=== PATIENT | female | born 1965 | race Caucasian/White ===

== ENCOUNTER 2023-02-09 09:45 | Inpatient (IN) | payer MEDICARE, OTHER ==
[2023-02-09 09:53] LABS: Glucose,Whole Blood >600 mg/dL (70-110)
[2023-02-09] MEDS ORDERED: Potassium Replacement Protocol 1 EACH MISC MISCELLANE PRN (10:15)
[2023-02-09] MEDS ORDERED: INSULIN REGULAR BOLUS (FROM DRIP BAG) IV ONE (10:15)
[2023-02-09] MEDS ORDERED: DEXTROSE 50% SYRINGE 50 ML IVP PRN ×2 (10:15)
[2023-02-09] MEDS ORDERED: Magnesium Replacement Protocol 1 EACH MISC MISCELLANE PRN (10:15)
[2023-02-09] MEDS ORDERED: SODIUM CHLORIDE 0.9% 2,000 ML IV ONE (10:17)
--- NOTE | 2023-02-09 10:23 | ED ---
General Adult HPI - General Chief complaint: Nausea/Vomiting/Diarrhea Stated complaint: N/V, Type 2 Diab Time Seen by Provider: 02/09/23 10:00 Source: patient, RN notes reviewed, old records reviewed Mode of arrival: EMS Limitations: physical limitation - History of Present Illness Initial comments: This a 57-year-old female presents emergency Department stating that her sugar is high and that is why she is here. Patient states she only takes insulin once a week however the patient also thinks it's and is unaware that it is Wednesday. Patient denies any fever chills per patient denies any chest pain difficulty breathing shortness of breath per patient denies any abdominal pain. Patient denies any nausea vomiting diarrhea. Patient is a very poor historian and does seem confused - Related Data Home Medications Medication Instructions Recorded Confirmed Aspirin EC [Ecotrin Low Dose] 81 mg PO DAILY 02/09/23 02/09/23 Atorvastatin [Lipitor] 40 mg PO HS 02/09/23 02/09/23 Ferrous Sulfate [Feosol] 325 mg PO DAILY 02/09/23 02/09/23 Metoprolol Succinate (ER) [Toprol 50 mg PO BID 02/09/23 02/09/23 Xl] Ondansetron [Zofran] 4 mg PO Q8HR PRN 02/09/23 02/09/23 Pioglitazone [Actos] 15 mg PO DAILY 02/09/23 02/09/23 SUMAtriptan succinate [Imitrex] 100 mg PO BID PRN 02/09/23 02/09/23 Semaglutide [Ozempic] 0.25 mg SQ Q7D 02/09/23 02/09/23 Verapamil Sr [Isoptin Sr] 180 mg PO DAILY 02/09/23 02/09/23 lisinopriL [Zestril] 30 mg PO DAILY 02/09/23 02/09/23 sitaGLIPtin [Januvia] 50 mg PO DAILY 02/09/23 02/09/23 Allergies Allergy/AdvReac Type Severity Reaction Status Date / Time metoclopramide [From Reglan] Allergy Swelling Verified 02/09/23 13:20 Review of Systems ROS Statement: Those systems with pertinent positive or pertinent negative responses have been documented in the HPI. ROS Other: All systems not noted in ROS Statement are negative. Past Medical History Past Medical History: Diabetes Mellitus Additional Past Medical History / Comment(s): legally blind, Past Surgical History: No Surgical Hx Reported Past Psychological History: No Psychological Hx Reported Smoking Status: Never smoker Past Alcohol Use History: None Reported Past Drug Use History: None Reported General Exam - General Exam Comments Initial Comments: GENERAL: Patient is well-developed and well-nourished. Patient is nontoxic and well-hy drated and is in mild distress. ENT: Neck is soft and supple. No significant lymphadenopathy is noted. Oropharynx is clear. Dry mucous membranes. Neck has full range of motion without eliciting any pain. EYES: The sclera were anicteric and conjunctiva were pink and moist. Extraocular movements were intact and pupils were equal round and reactive to light. Eyelids were unremarkable. PULMONARY: Unlabored respirations. Good breath sounds bilaterally. No audible rales rhonchi or wheezing was noted. CARDIOVASCULAR: There is a regular rate and rhythm without any murmurs gallops or rubs. ABDOMEN: Soft and nontender with normal bowel sounds. SKIN: Skin is clear with no lesions or rashes and otherwise unremarkable. NEUROLOGIC: Patient is alert and oriented 2. Cranial nerves II through XII are grossly intact. Motor and sensory are also intact. Normal speech, volume and content. Symmetrical smile. MUSCULOSKELETAL: Normal extremities with adequate strength and full range of motion. LYMPHATICS: No significant lymphadenopathy is noted PSYCHIATRIC: Normal psychiatric evaluation. Limitations: altered mental status, physical limitation Course Vital Signs 02/09/23 02/09/23 02/09/23 09:46 10:44 11:32 Temperature 98.0 F Pulse Rate 95 97 93 Respiratory 18 18 18 Rate Blood Pressure 113/39 107/78 96/49 O2 Sat by Pulse 99 96 94 L Oximetry 02/09/23 02/09/23 12:01 13:25 Temperature Pulse Rate 94 90 Respiratory 18 18 Rate Blood Pressure 98/45 90/64 O2 Sat by Pulse 99 100 Oximetry Medical Decision Making - Medical Decision Making EKG was interpreted by myself EKG shows a sinus rhythm at 90 bpm AR interval 154 Avelar is 100 a QT interval 356 QTC is 408. Patient's EKG shows no ST segment e levation. Was pt. sent in by a medical professional or institution (, PA, NETWORK CONSULTANT, urgent care, hospital, or longterm...) When possible be specific @ -[No] Did you speak to anyone other than the patient for history (EMS, parent, family, police, friend...)? What history was obtained from this source @ -[No] Did you review nursing and triage notes (agree or disagree)? Why? @ -[I reviewed and agree with nursing and triage notes] Were old charts reviewed (outside hosp., previous admission, EMS record, old EKG, old radiological studies, urgent care reports/EKG's, longterm records)? Report findings @ -[No old charts were reviewed] Differential Diagnosis (chest pain, altered mental status, abdominal pain women, abdominal pain men, vaginal bleeding, weakness, fever, dyspnea, syncope, headache, dizziness, GI bleed, back pain, seizure, CVA, palpatations, mental health, musculoskeletal)? @ -Differential Altered Mental Status: Hypoglycemia, DKA, hypercapnia, ETOH, overdose, CO poisoning, trauma, myxedema coma, HTN encephalopathy, infection, encephalitis, psychosis, intercranial hemorrhage, hepatic encephalopathy, meningitis, CVA, this is not meant to be an all-inclusive list EKG interpreted by me (3pts min.). @ -[As above] X-rays interpreted by me (1pt min.). @ -[None done] CT interpreted by me (1pt min.). @ -[None done] U/S interpreted by me (1pt. min.). @ -[None done] What testing was considered but not performed or refused? (CT, X-rays, U/S, labs)? Why? @ -[None] What meds were considered but not given or refused? Why? @ -[None] Did you discuss the management of the patient with other professionals (professionals i.e. , PA, NETWORK CONSULTANT, lab, RT, psych nurse, social media developer, ferris wheel operator, teacher, surveillance dual rate officer, casey saw operator)? Give summary @ -I spoke with son physicians he agreed to admit the patient with the patient wrote admitting orders I consulted Dr. Bailey and spoke with him and he agreed to take the patient in the ICU Was smoking cessation discussed for >3mins.? @ -[No] Was critical care preformed (if so, how long)? @ -35 minutes Were there social determinants of health that impacted care today? How? (Homelessness, low income, unemployed, alcoholism, drug addiction, transportation, low edu. Level, literacy, decrease access to med. care, detention, rehab)? @ -[No] Was there de-escalation of care discussed even if they declined (Discuss DNR or withdrawal of care, Hospice)? DNR status @ -[No] What co-morbidities impacted this encounter? (DM, HTN, Smoking, COPD, CAD, Cancer, CVA, ARF, Chemo, Hep., AIDS, mental health diagnosis, sleep apnea, morbid obesity)? @ -[None] Was patient admitted / discharged? Hospital course, mention meds given and route, prescriptions, significant lab abnormalities, going to OR and other pertinent info. @ -Patient's sugar was elevated and she was acidotic she felt prescription for DKA patient was started on insulin as well as given a 2 L bolus of normal saline. I spoke with son physicians agreed to admit the patient admitted the patient I consulted Dr. Bailey and admitted the patient to the ICU Undiagnosed new problem with uncertain prognosis? @ -[No] Drug Therapy requiring intensive monitoring for toxicity (Heparin, Nitro, Insulin, Cardizem)? @ -[No] Were any procedures done? @ -[No] Diagnosis/symptom? @ -DKA Acute, or Chronic, or Acute on Chronic? @ -Acute Uncomplicated (without systemic symptoms) or Complicated (systemic symptoms)? @ -Complicated Side effects of treatment? @ -[No] Exacerbation, Progression, or Severe Exacerbation? @ -[No] Poses a threat to life or bodily function? How? (Chest pain, [place], [place], pneumonia, PE, COPD, DKA, ARF, appy, cholecystitis, CVA, Diverticulitis, Homicidal, Suicidal, threat to staff... and all critical care pts) @ -Yes this could lead to further dehydration and - Lab Data Result diagrams: 02/09/23 09:50 02/09/23 10:15 Lab Results 02/09/23 02/09/23 02/09/23 Range/Units 09:50 09:51 10:15 WBC 8.4 (3.8-10.6) k/uL RBC 4.35 (3.80-5.40) m/uL Hgb 12.0 (11.4-16.0) gm/dL Hct 40.4 (34.0-46.0) % MCV 92.9 (80.0-100.0) fL MCH 27.7 (25.0-35.0) pg MCHC 29.8 L (31.0-37.0) g/dL RDW 17.5 H (11.5-15.5) % Plt Count 223 (150-450) k/uL MPV 10.9 Neutrophils % 85 % Lymphocytes % 6 % Monocytes % 6 % Eosinophils % 1 % Basophils % 1 % Neutrophils # 7.1 (1.3-7.7) k/uL Lymphocytes # 0.5 L (1.0-4.8) k/uL Monocytes # 0.5 (0-1.0) k/uL Eosinophils # 0.1 (0-0.7) k/uL Basophils # 0.1 (0-0.2) k/uL Hypochromasia Marked Anisocytosis Slight VBG pH (7.31-7.41) VBG pCO2 (37-51) mmHg VBG HCO3 (24-28) mmol/L Sodium 128 L (137-145) mmol/L Potassium 7.1 H* (3.5-5.1) mmol/L Chloride 88 L (98-107) mmol/L Carbon Dioxide 11 L (22-30) mmol/L Anion Gap 29 mmol/L BUN 41 H (7-17) mg/dL Creatinine 1.71 H (0.52-1.04) mg/dL Est GFR (CKD-EPI)AfAm 38 (>60 ml/min/1.73 sqM) Est GFR (CKD-EPI)NonAf 33 (>60 ml/min/1.73 sqM) Glucose 787 H* (74-99) mg/dL POC Glucose (mg/dL) >600 H (70-110) mg/dL POC Glu Manager Search Engine ID Danny Keanu Urine Color Urine Appearance (Clear) Urine pH (5.0-8.0) Ur Specific [place] (1.001-1.035) Urine Protein (Negative) Urine Glucose (UA) (Negative) Urine Ketones (Negative) Urine Blood (Negative) Urine Nitrite (Negative) Urine Bilirubin (Negative) Urine Urobilinogen (<2.0) mg/dL Ur Leukocyte Esterase (Negative) Acetone, Qual Positive (Negative) 02/09/23 02/09/23 02/09/23 Range/Units 10:35 10:35 10:52 WBC (3.8-10.6) k/uL RBC (3.80-5.40) m/uL Hgb (11.4-16.0) gm/dL Hct (34.0-46.0) % MCV (80.0-100.0) fL MCH (25.0-35.0) pg MCHC (31.0-37.0) g/dL RDW (11.5-15.5) % Plt Count (150-450) k/uL MPV Neutrophils % % Lymphocytes % % Monocytes % % Eosinophils % % Basophils % % Neutrophils # (1.3-7.7) k/uL Lymphocytes # (1.0-4.8) k/uL Monocytes # (0-1.0) k/uL Eosinophils # (0-0.7) k/uL Basophils # (0-0.2) k/uL Hypochromasia Anisocytosis VBG pH 7.19 L* (7.31-7.41) VBG pCO2 42 (37-51) mmHg VBG HCO3 16 L (24-28) mmol/L Sodium (137-145) mmol/L Potassium (3.5-5.1) mmol/L Chloride (98-107) mmol/L Carbon Dioxide (22-30) mmol/L Anion Gap mmol/L BUN (7-17) mg/dL Creatinine (0.52-1.04) mg/dL Est GFR (CKD-EPI)AfAm (>60 ml/min/1.73 sqM) Est GFR (CKD-EPI)NonAf (>60 ml/min/1.73 sqM) Glucose (74-99) mg/dL POC Glucose (mg/dL) >600 H (70-110) mg/dL POC Glu Manager Search Engine ID Lisette Millan Urine Color Light Yellow Urine Appearance Clear (Clear) Urine pH 5.0 (5.0-8.0) Ur Specific [place] 1.016 (1.001-1.035) Urine Protein Trace H (Negative) Urine Glucose (UA) 4+ H (Negative) Urine Ketones 3+ H (Negative) Urine Blood Negative (Negative) Urine Nitrite Negative (Negative) Urine Bilirubin Negative (Negative) Urine Urobilinogen <2.0 (<2.0) mg/dL Ur Leukocyte Esterase Negative (Negative) Acetone, Qual (Negative) 02/09/23 02/09/23 02/09/23 Range/Units 12:01 12:59 14:06 WBC (3.8-10.6) k/uL RBC (3.80-5.40) m/uL Hgb (11.4-16.0) gm/dL Hct (34.0-46.0) % MCV (80.0-100.0) fL MCH (25.0-35.0) pg MCHC (31.0-37.0) g/dL RDW (11.5-15.5) % Plt Count (150-450) k/uL MPV Neutrophils % % Lymphocytes % % Monocytes % % Eosinophils % % Basophils % % Neutrophils # (1.3-7.7) k/uL Lymphocytes # (1.0-4.8) k/uL Monocytes # (0-1.0) k/uL Eosinophils # (0-0.7) k/uL Basophils # (0-0.2) k/uL Hypochromasia Anisocytosis VBG pH (7.31-7.41) VBG pCO2 (37-51) mmHg VBG HCO3 (24-28) mmol/L Sodium (137-145) mmol/L Potassium (3.5-5.1) mmol/L Chloride (98-107) mmol/L Carbon Dioxide (22-30) mmol/L Anion Gap mmol/L BUN (7-17) mg/dL Creatinine (0.52-1.04) mg/dL Est GFR (CKD-EPI)AfAm (>60 ml/min/1.73 sqM) Est GFR (CKD-EPI)NonAf (>60 ml/min/1.73 sqM) Glucose (74-99) mg/dL POC Glucose (mg/dL) 570 H 470 H 360 H (70-110) mg/dL POC Glu Manager Search Engine Keanu Castellanos Elizabeth McNeice, Katlyn Urine Color Urine Appearance (Clear) Urine pH (5.0-8.0) Ur Specific [place] (1.001-1.035) Urine Protein (Negative) Urine Glucose (UA) (Negative) Urine Ketones (Negative) Urine Blood (Negative) Urine Nitrite (Negative) Urine Bilirubin (Negative) Urine Urobilinogen (<2.0) mg/dL Ur Leukocyte Esterase (Negative) Acetone, Qual (Negative) Critical Care Time Critical Care Time: Yes Total Critical Care Time: 35 Disposition Clinical Impression: Diabetic ketoacidosis Disposition: ADMITTED IP TO THIS HOSP Referrals: None,Stated [Primary Care Provider] - 1-2 days Time of Disposition: 14:26
[2023-02-09] MEDS: SODIUM CHLORIDE 0.9% 1,000 ML IV SCH ×2 (10:30→17:01)
[2023-02-09 10:31] LABS: Anisocytosis Slight; Basophils # (A) 0.1 k/uL (0-0.2); Basophils % (A) 1 %; Eosinophils # (A) 0.1 k/uL (0-0.7); Eosinophils % (A) 1 %; HCT 40.4 % (34.0-46.0); Hypochromasia Marked; Lymphocytes # (A) 0.5 k/uL (1.0-4.8); Lymphocytes % (A) 6 %; MCH 27.7 pg (25.0-35.0); MCHC 29.8 g/dL (31.0-37.0); MCV 92.9 fL (80.0-100.0); Mean Platelet Volume 10.9; Monocytes # (A) 0.5 k/uL (0-1.0); Monocytes % (A) 6 %; Neutrophils # (A) 7.1 k/uL (1.3-7.7); Neutrophils % (A) 85 %; Platelet Count 223 k/uL (150-450); RBC 4.35 m/uL (3.80-5.40); RDW 17.5 % (11.5-15.5); WBC 8.4 k/uL (3.8-10.6)
[2023-02-09] MEDS ORDERED: ONDANSETRON 4 MG/2 ML VIAL IVP STA (10:44)
[2023-02-09 10:46] LABS: African American GFR (CKD) 38 (>60 ml/min/1.73 sqM); Anion Gap 29 mmol/L; Blood Urea Nitrogen 41 mg/dL (7-17); Carbon Dioxide 11 mmol/L (22-30); Chloride 88 mmol/L (98-107); Non-African American GFR(CKD) 33 (>60 ml/min/1.73 sqM); Sodium 128 mmol/L (137-145)
[2023-02-09] MEDS: INSULIN REGULAR 100 UNIT in SODIUM CHLORIDE 0.9% 100 ML IV SCH ×2 (10:53→16:52)
[2023-02-09 10:54] LABS: Glucose,Whole Blood >600 mg/dL (70-110)
[2023-02-09 10:54] LABS: Glucose 787 mg/dL (74-99); Potassium 7.1 mmol/L (3.5-5.1)
[2023-02-09 10:58] LABS: Appearance,Urine Clear (Clear); Bilirubin,Urine Negative (Negative); Blood,Urine Negative (Negative); Color,Urine Light Yellow; Glucose,Urine (UA) 4+ (Negative); Leukocyte Esterase,Urine Negative (Negative); Nitrite,Urine Negative (Negative); Protein,Urine Trace (Negative); Specific Gravity,Urine 1.016 (1.001-1.035); Urobilinogen,Urine <2.0 mg/dL (<2.0)
[2023-02-09 11:09] LABS: Ketones,Urine 3+ (Negative); VBG PH 7.19 (7.31-7.41)
[2023-02-09] MEDS ORDERED: CALCIUM CHLORIDE 100 MG/ML 10 ML SYRINGE IVP STA (11:14)
[2023-02-09] MEDS ORDERED: SODIUM BICARB 8.4% 50 ML SYR (1 MEQ/ML) IV STA (11:15)
[2023-02-09 12:03] LABS: Glucose,Whole Blood 570 mg/dL (70-110)
[2023-02-09 13:01] LABS: Glucose,Whole Blood 470 mg/dL (70-110)
[2023-02-09 14:08] LABS: Glucose,Whole Blood 360 mg/dL (70-110)
[2023-02-09] MEDS ORDERED: NALOXONE 0.4 MG/ML 1 ML VIAL IV PRN (14:26)
[2023-02-09 15:01] LABS: Glucose,Whole Blood 321 mg/dL (70-110)
[2023-02-09 15:58] LABS: African American GFR (CKD) 43 (>60 ml/min/1.73 sqM); Anion Gap 16 mmol/L; Blood Urea Nitrogen 41 mg/dL (7-17); Carbon Dioxide 20 mmol/L (22-30); Chloride 99 mmol/L (98-107); Glucose 255 mg/dL (74-99); Non-African American GFR(CKD) 37 (>60 ml/min/1.73 sqM); Potassium 4.5 mmol/L (3.5-5.1); Sodium 135 mmol/L (137-145)
[2023-02-09] MEDS: D5-0.45% NACL WITH KCL 20MEQ/L 1,000 ML IV SCH (16:00)
[2023-02-09 16:04] LABS: Glucose,Whole Blood 234 mg/dL (70-110)
--- NOTE | 2023-02-09 16:33 | P.HPIM ---
History of Present Illness H&P Date: 02/09/23 Patient is a 57-year-old legally blind female with history of type 2 diabetes, hypertension, dyslipidemia presenting with nausea and vomiting. Patient is a poor historian. She claims that she lives with a friend and called ambulance on her own. She claims that she has not been feeling well for the past 1 week, and has been having nausea and vomiting. She has been having some fevers and chills. She denies any chest pain, shortness of breath, abdominal pain, urinary or bowel complaints. She claims that she takes her own medications, but is unsure which medications she takes. She denies any smoking, alcohol use, illicit drug use. She uses a walker to ambulate. In the ED, temperature was 98, pulse 95, respiratory rate 18, blood pressure 113/39, saturating at 99% on room air. WBC 8.4, hemoglobin 12, pH 7.19, pCO2 42, sodium 128, potassium 7.1, bicarbonate 11, anion gap 29, creatinine 1.71, blood sugars 787, urine positive for glucose and ketones, serum ketones posi tive. EKG shows normal sinus rhythm. Patient given calcium chloride in the ED, IV bicarbonate, as well as started on insulin drip. ICU consulted. Patient being admitted for diabetic ketoacidosis. Pertinent positives and negatives as discussed in HPI, a complete review of systems was performed and all other systems are negative. Patient seen and examined at bedside. Vital signs reviewed General: nontoxic, no distress, appears at stated age, morbidly obese Derm: warm, dry, has intertrigo, one of the right folds have a ulceration with slight purulent discharge, 2 more areas of crusted and indurated lesions on the abdomen Head: atraumatic, normocephalic, symmetric Eyes: EOMI, no lid lag, anicteric sclera, pupils equal round reactive to light ENT: Nose and ears atraumatic Neck: No thyromegaly, supple Mouth: no lip lesion, mucus membranes moist Cardiovascular: S1S2 reg, no murmur, no edema Lungs: clear to auscultation bilateral, no rhonchi, no rales, no wheeze, no accessory muscle use Abdominal: soft, nontender to palpation, no guarding, no appreciable organomegaly Ext: no gross muscle atrophy, muscle strength muscle strength 5 out of 5 in all 4 extremities, no contractures Neuro: CN II-XII grossly intact Psych: Alert, oriented, appropriate affect Assessment/Plan: Active: Diabetic ketoacidosis History of type 2 diabetes Anion gap metabolic acidosis Hyperkalemia Acute kidney injury Acute metabolic encephalopathy Intertrigo -Insulin drip -Received 1 L IV fluids in the ED, continue to monitor cc an hour normal saline -Can start patient on dextrose fluids once blood glucose below 250 -Zofran as needed for nausea and vomiting -Hyperkalemia should improve with bicarbonate and insulin drip -Acute kidney injury likely prerenal in the setting of dehydration from DKA -Hold home lisinopril and verapamil -Can continue metoprolol -Continue IV fluids -Cultures pending -Encephalopathy likely in the setting of DKA -Serial labs -ICU consulted -Telemetry -Keep area clean and dry at the site of skin lesions, can use nystatin powder if needed Chronic: Dyslipidemia History of hypertension The patient is admitted with an anticipated greater than 2 midnight stay as inpa tient status for evaluation of diabetic ketoacidosis. Surrogate decision-maker: Sibling CODE STATUS: Full code DVT prophylaxis: Subcu heparin Anticipated discharge date: Pending clinical course Anticipated discharge place: Pending clinical course A total of 65 minutes was spent on the care of this complex patient more than 50% of the time was spent in counseling and care coordination. Past Medical History Past Medical History: Diabetes Mellitus Additional Past Medical History / Comment(s): legally blind, Past Surgical History: No Surgical Hx Reported Past Psychological History: No Psychological Hx Reported Smoking Status: Never smoker Past Alcohol Use History: None Reported Past Drug Use History: None Reported Medications and Allergies Home Medications Medication Instructions Recorded Confirmed Type Aspirin EC [Ecotrin Low Dose] 81 mg PO DAILY 02/09/23 02/09/23 History Atorvastatin [Lipitor] 40 mg PO HS 02/09/23 02/09/23 History Ferrous Sulfate [Feosol] 325 mg PO DAILY 02/09/23 02/09/23 History Metoprolol Succinate (ER) [Toprol 50 mg PO BID 02/09/23 02/09/23 History Xl] Ondansetron [Zofran] 4 mg PO Q8HR PRN 02/09/23 02/09/23 History Pioglitazone [Actos] 15 mg PO DAILY 02/09/23 02/09/23 History SUMAtriptan succinate [Imitrex] 100 mg PO BID PRN 02/09/23 02/09/23 History Semaglutide [Ozempic] 0.25 mg SQ Q7D 02/09/23 02/09/23 History Verapamil Sr [Isoptin Sr] 180 mg PO DAILY 02/09/23 02/09/23 History lisinopriL [Zestril] 30 mg PO DAILY 02/09/23 02/09/23 History sitaGLIPtin [Januvia] 50 mg PO DAILY 02/09/23 02/09/23 History Allergies Allergy/AdvReac Type Severity Reaction Status Date / Time metoclopramide [From Reglan] Allergy Swelling Verified 02/09/23 13:20 Physical Exam Vitals: Vital Signs Temp Pulse Resp BP Pulse Ox 02/09/23 15:32 87 18 88/42 96 02/09/23 14:00 92 18 91/43 97 02/09/23 13:25 90 18 90/64 100 02/09/23 12:01 94 18 98/45 99 02/09/23 11:32 93 18 96/49 94 L 02/09/23 10:44 97 18 107/78 96 02/09/23 09:46 98.0 F 95 18 113/39 99 Intake and Output 02/09/23 02/09/23 02/09/23 06:59 14:59 22:59 Other: Weight 121.109 kg Results CBC & Chem 7: 02/09/23 09:50 02/09/23 15:24 Labs: Abnormal Lab Results - Last 24 Hours (Table) 02/09/23 02/09/23 02/09/23 Range/Units 09:50 09:51 10:15 MCHC 29.8 L (31.0-37.0) g/dL RDW 17.5 H (11.5-15.5) % Lymphocytes # 0.5 L (1.0-4.8) k/uL VBG pH (7.31-7.41) VBG HCO3 (24-28) mmol/L Sodium 128 L (137-145) mmol/L Potassium 7.1 H* (3.5-5.1) mmol/L Chloride 88 L (98-107) mmol/L Carbon Dioxide 11 L (22-30) mmol/L BUN 41 H (7-17) mg/dL Creatinine 1.71 H (0.52-1.04) mg/dL Glucose 787 H* (74-99) mg/dL POC Glucose (mg/dL) >600 H (70-110) mg/dL Urine Protein (Negative) Urine Glucose (UA) (Negative) Urine Ketones (Negative) 02/09/23 02/09/23 02/09/23 Range/Units 10:35 10:35 10:52 MCHC (31.0-37.0) g/dL RDW (11.5-15.5) % Lymphocytes # (1.0-4.8) k/uL VBG pH 7.19 L* (7.31-7.41) VBG HCO3 16 L (24-28) mmol/L Sodium (137-145) mmol/L Potassium (3.5-5.1) mmol/L Chloride (98-107) mmol/L Carbon Dioxide (22-30) mmol/L BUN (7-17) mg/dL Creatinine (0.52-1.04) mg/dL Glucose (74-99) mg/dL POC Glucose (mg/dL) >600 H (70-110) mg/dL Urine Protein Trace H (Negative) Urine Glucose (UA) 4+ H (Negative) Urine Ketones 3+ H (Negative) 02/09/23 02/09/23 02/09/23 Range/Units 12:01 12:59 14:06 MCHC (31.0-37.0) g/dL RDW (11.5-15.5) % Lymphocytes # (1.0-4.8) k/uL VBG pH (7.31-7.41) VBG HCO3 (24-28) mmol/L Sodium (137-145) mmol/L Potassium (3.5-5.1) mmol/L Chloride (98-107) mmol/L Carbon Dioxide (22-30) mmol/L BUN (7-17) mg/dL Creatinine (0.52-1.04) mg/dL Glucose (74-99) mg/dL POC Glucose (mg/dL) 570 H 470 H 360 H (70-110) mg/dL Urine Protein (Negative) Urine Glucose (UA) (Negative) Urine Ketones (Negative) 02/09/23 Range/Units 14:59 MCHC (31.0-37.0) g/dL RDW (11.5-15.5) % Lymphocytes # (1.0-4.8) k/uL VBG pH (7.31-7.41) VBG HCO3 (24-28) mmol/L Sodium (137-145) mmol/L Potassium (3.5-5.1) mmol/L Chloride (98-107) mmol/L Carbon Dioxide (22-30) mmol/L BUN (7-17) mg/dL Creatinine (0.52-1.04) mg/dL Glucose (74-99) mg/dL POC Glucose (mg/dL) 321 H (70-110) mg/dL Urine Protein (Negative) Urine Glucose (UA) (Negative) Urine Ketones (Negative)
[2023-02-09] MEDS ORDERED: SODIUM CHLORIDE 0.9% 1,000 ML IV ONE (16:51)
[2023-02-09 17:07] LABS: Glucose,Whole Blood 232 mg/dL (70-110)
[2023-02-09 17:39] LABS: African American GFR (CKD) 42 (>60 ml/min/1.73 sqM); Anion Gap 18 mmol/L; Blood Urea Nitrogen 41 mg/dL (7-17); Carbon Dioxide 19 mmol/L (22-30); Chloride 99 mmol/L (98-107); Glucose 188 mg/dL (74-99); Magnesium 2.1 mg/dL (1.6-2.3); Non-African American GFR(CKD) 37 (>60 ml/min/1.73 sqM); Potassium 4.6 mmol/L (3.5-5.1); Sodium 136 mmol/L (137-145)
[2023-02-09 18:04] LABS: Glucose,Whole Blood 132 mg/dL (70-110)
[2023-02-09 18:58] LABS: Glucose,Whole Blood 119 mg/dL (70-110)
[2023-02-09 20:00] LABS: Glucose,Whole Blood 125 mg/dL (70-110)
[2023-02-09] MEDS: ONDANSETRON 4 MG/2 ML VIAL IVP PRN (20:12)
[2023-02-09] MEDS: ATORVASTATIN 40 MG TAB PO SCH (20:46)
[2023-02-09] MEDS: METOPROLOL SUCCINATE (ER) 50 MG TAB.ER.24H PO SCH (20:46)
[2023-02-09 20:56] LABS: Glucose,Whole Blood 165 mg/dL (70-110)
[2023-02-09 21:59] LABS: Glucose,Whole Blood 148 mg/dL (70-110)
[2023-02-09 23:01] LABS: African American GFR (CKD) 48 (>60 ml/min/1.73 sqM); Anion Gap 16 mmol/L; Blood Urea Nitrogen 38 mg/dL (7-17); Calcium 9.8 mg/dL (8.4-10.2); Carbon Dioxide 17 mmol/L (22-30); Chloride 101 mmol/L (98-107); Glucose 151 mg/dL (74-99); Non-African American GFR(CKD) 42 (>60 ml/min/1.73 sqM); Sodium 134 mmol/L (137-145)
[2023-02-09 23:10] LABS: Potassium 5.3 mmol/L (3.5-5.1)
[2023-02-09 23:10] LABS: Glucose,Whole Blood 196 mg/dL (70-110)
[2023-02-09 23:54] LABS: Glucose,Whole Blood 234 mg/dL (70-110)
[2023-02-10] MEDS: D5-0.45% NACL WITH KCL 20MEQ/L 1,000 ML IV SCH ×3 (01:05→16:22)
[2023-02-10 01:08] LABS: Glucose,Whole Blood 256 mg/dL (70-110)
[2023-02-10] MEDS: ONDANSETRON 4 MG/2 ML VIAL IVP PRN ×3 (01:15→21:13)
[2023-02-10 01:59] LABS: Glucose,Whole Blood 228 mg/dL (70-110)
--- NOTE | 2023-02-10 02:18 | P.CNPUL ---
History of Present Illness Consult date: 02/10/23 Requesting physician: Asher Mckeon Reason for consult: other (ICU management; diabetic ketoacidosis) Chief complaint: Nausea and vomiting and hyperglycemia History of present illness: I am seeing this patient in new consultation today 02/10/2023 for acute diabetic ketoacidosis. Patient is a 57-year-old white female past medical history significant for diabetes mellitus type 2, hypertension, hyperlipidemia, obesity, and she is legally blind. Patient herself is a poor historian, and most of this HPI is taken from chart review. She reportedly manages her diabetes at home with a combination of Januvia, Actos, and weekly injections of Ozempic. Apparently, the patient presented to the emergency room via EMS yesterday morning with complaints of nausea and vomiting with hyperglycemia. She was found to be in acute DKA. Serum bicarb was 11, anion gap 29, blood glucose 787, and she was acetone positive. She was started on the DKA protocol. Patient is currently lying in bed, on room air, in no acute distress. She is confused and only oriented to self. Abdomen is soft and the patient denies any abdominal pain. No further nausea or vomiting. Denies any urinary complaints. Urinalysis was unremarkable for UTI. CBC was unremarkable. No leukocytosis. She is afebrile. Most recent BMP shows sodium 134, potassium 5.3, chloride 101, serum bicarb 17, anion gap 16, BUN 38, creatinine 1.42, glucose 151. Insulin is currently infusing per protocol. D5W0.45% normal salineKCl 20 is infusing at 150 ML's per hour. Urine output is in order of 40-50 mL per hour. Patient appears hemodynamically stable, and will be monitored in the intensive care unit until her DKA resolves. Review of Systems ROS unobtainable: due to mental status Past Medical History Past Medical History: Diabetes Mellitus Additional Past Medical History / Comment(s): legally blind, History of Any Multi-Drug Resistant Organisms: None Reported Past Surgical History: No Surgical Hx Reported Past Psychological History: No Psychological Hx Reported Smoking Status: Never smoker Past Alcohol Use History: None Reported Past Drug Use History: None Reported Medications and Allergies Home Medications Medication Instructions Recorded Confirmed Type Aspirin EC [Ecotrin Low Dose] 81 mg PO DAILY 02/09/23 02/09/23 History Atorvastatin [Lipitor] 40 mg PO HS 02/09/23 02/09/23 History Ferrous Sulfate [Feosol] 325 mg PO DAILY 02/09/23 02/09/23 History Metoprolol Succinate (ER) [Toprol 50 mg PO BID 02/09/23 02/09/23 History Xl] Ondansetron [Zofran] 4 mg PO Q8HR PRN 02/09/23 02/09/23 History Pioglitazone [Actos] 15 mg PO DAILY 02/09/23 02/09/23 History SUMAtriptan succinate [Imitrex] 100 mg PO BID PRN 02/09/23 02/09/23 History Semaglutide [Ozempic] 0.25 mg SQ Q7D 02/09/23 02/09/23 History Verapamil Sr [Isoptin Sr] 180 mg PO DAILY 02/09/23 02/09/23 History lisinopriL [Zestril] 30 mg PO DAILY 02/09/23 02/09/23 History sitaGLIPtin [Januvia] 50 mg PO DAILY 02/09/23 02/09/23 History Allergies Allergy/AdvReac Type Severity Reaction Status Date / Time metoclopramide [From Reglan] Allergy Swelling Verified 02/09/23 13:20 Physical Exam Vitals: Vital Signs Temp Pulse Resp BP Pulse Ox 02/10/23 01:00 98 12 101/56 91 L 02/10/23 00:26 96 8 L 108/76 94 L 02/10/23 00:00 98.1 F 96 14 108/76 94 L 02/09/23 23:00 89 15 81/37 99 02/09/23 22:00 90 11 L 85/35 99 02/09/23 21:00 87 11 L 102/52 99 02/09/23 20:00 97.7 F 88 6 L 100/57 98 02/09/23 19:00 88 21 125/64 97 02/09/23 18:00 85 13 125/60 96 02/09/23 17:00 84 95/50 95 02/09/23 16:00 97.2 F L 86 94/47 90 L 02/09/23 15:32 87 18 88/42 96 02/09/23 14:00 92 18 91/43 97 02/09/23 13:25 90 18 90/64 100 02/09/23 12:01 94 18 98/45 99 02/09/23 11:32 93 18 96/49 94 L 02/09/23 10:44 97 18 107/78 96 02/09/23 10:00 96 113/39 02/09/23 09:48 99 02/09/23 09:46 98.0 F 95 18 113/39 99 Intake and Output 02/09/23 02/09/23 02/10/23 14:59 22:59 06:59 Intake Total 2169.794 452.375 Output Total 395 215 Balance 1774.794 237.375 Intake: IV 2070 450 D5-0.45% NaCl with KCl 1050 450 20Meq/l 1,000 ml @ 150 mls/hr IV .Q6H40M [facility] Rx# :[id number] Invasive Line 1 10 Invasive Line 2 10 Sodium Chloride 0.9% 1, 1000 000 ml @ 200 mls/hr IV . Q5H [facility] Rx#:[id number] Intake, IV Titration 99.794 2.375 Amount Insulin Regular 100 unit 99.794 2.375 In Sodium Chloride 0.9% 100 ml @ 0.1 UNITS/KG/HR 12.232 mls/hr IV .Q8H16M [facility] Rx#:[id number] Output: Urine 395 215 Other: Voiding Method Indwelling Catheter Indwelling Catheter Weight 121.109 kg GENERAL EXAM: Drowsy, 57-year-old obese female, fairly comfortable in no apparent distress. HEAD: Normocephalic and atraumatic EYES: Cataract limits exam NOSE: Clear with pink turbinates. THROAT: No erythema or exudates. NECK: No masses, no JVD. CHEST: No chest wall deformity. LUNGS: Equal air entry with no crackles, wheeze, rhonchi or dullness. On room air. No conversational dyspnea or accessory muscle use.. CVS: S1 and S2 normal with no audible murmur, regular rhythm. No extra heart sounds ABDOMEN: Obese abdomen, no hepatosplenomegaly, active bowel sounds, no guarding or rigidity. SPINE: No scoliosis or deformity SKIN: Intertigo within skins folds and underneath pannus CENTRAL NERVOUS SYSTEM: No focal deficits, tone is normal in all 4 extremities. She is oriented only to self. EXTREMITIES: Bilateral lower extremity 2+ pitting edema. No clubbing or cyanosis. Peripheral pulses are intact. Results - Laboratory Findings CBC and BMP: 02/09/23 09:50 02/09/23 22:08 Abnormal lab findings: Abnormal Labs 02/09/23 02/09/23 02/09/23 09:50 09:51 10:15 MCHC 29.8 L RDW 17.5 H Lymphocytes # 0.5 L VBG pH VBG HCO3 Sodium 128 L Potassium 7.1 H* Chloride 88 L Carbon Dioxide 11 L BUN 41 H Creatinine 1.71 H Glucose 787 H* POC Glucose (mg/dL) >600 H Urine Protein Urine Glucose (UA) Urine Ketones 02/09/23 02/09/23 02/09/23 10:35 10:35 10:52 MCHC RDW Lymphocytes # VBG pH 7.19 L* VBG HCO3 16 L Sodium Potassium Chloride Carbon Dioxide BUN Creatinine Glucose POC Glucose (mg/dL) >600 H Urine Protein Trace H Urine Glucose (UA) 4+ H Urine Ketones 3+ H 02/09/23 02/09/23 02/09/23 12:01 12:59 14:06 MCHC RDW Lymphocytes # VBG pH VBG HCO3 Sodium Potassium Chloride Carbon Dioxide BUN Creatinine Glucose POC Glucose (mg/dL) 570 H 470 H 360 H Urine Protein Urine Glucose (UA) Urine Ketones 02/09/23 02/09/23 02/09/23 14:59 15:24 15:53 MCHC RDW Lymphocytes # VBG pH VBG HCO3 Sodium 135 L Potassium Chloride Carbon Dioxide 20 L BUN 41 H Creatinine 1.56 H Glucose 255 H POC Glucose (mg/dL) 321 H 234 H Urine Protein Urine Glucose (UA) Urine Ketones 02/09/23 02/09/23 02/09/23 17:06 17:14 18:02 MCHC RDW Lymphocytes # VBG pH VBG HCO3 Sodium 136 L Potassium Chloride Carbon Dioxide 19 L BUN 41 H Creatinine 1.58 H Glucose 188 H POC Glucose (mg/dL) 232 H 132 H Urine Protein Urine Glucose (UA) Urine Ketones 02/09/23 02/09/23 02/09/23 18:56 19:59 20:54 MCHC RDW Lymphocytes # VBG pH VBG HCO3 Sodium Potassium Chloride Carbon Dioxide BUN Creatinine Glucose POC Glucose (mg/dL) 119 H 125 H 165 H Urine Protein Urine Glucose (UA) Urine Ketones 02/09/23 02/09/23 02/09/23 21:58 22:08 23:08 [facility] RDW Lymphocytes # VBG pH VBG HCO3 Sodium 134 L Potassium 5.3 H Chloride Carbon Dioxide 17 L BUN 38 H Creatinine 1.42 H Glucose 151 H POC Glucose (mg/dL) 148 H 196 H Urine Protein Urine Glucose (UA) Urine Ketones 02/09/23 02/10/23 23:52 01:07 [facility] RDW Lymphocytes # VBG pH VBG HCO3 Sodium Potassium Chloride Carbon Dioxide BUN Creatinine Glucose POC Glucose (mg/dL) 234 H 256 H Urine Protein Urine Glucose (UA) Urine Ketones Assessment and Plan Assessment: Acute diabetic ketoacidosis Anion gap metabolic acidosis secondary to above Acute kidney injury, likely prerenal related to dehydration and DKA Hyperkalemia, improved Suspected acute metabolic encephalopathy secondary to DKA Diabetes mellitus type 2, normally managed with a combination of Januvia, Actos, and weekly injections of Ozempic. Essential hypertension Hyperlipidemia Intertrigo Legally blind Morbid obesity, with a BMI of 46 kg/m Plan: Patient's medications and labs reviewed Continue DKA protocol including insulin and IV fluids Electrolytes every 4 hours until DKA resolves Hyperkalemia is improved No obvious infectious process was identified Blood cultures are pending Patient will be monitored in the intensive care unit until her DKA resolves I have personally seen and examined the patient, performed the documentation and the assessment and plan as written. Number of minutes spent on the visit:20 Time with Patient: Greater than 30
[2023-02-10] MEDS: ACETAMINOPHEN TAB 325 MG TAB PO PRN (02:25)
[2023-02-10 03:09] LABS: Glucose,Whole Blood 276 mg/dL (70-110)
[2023-02-10 03:54] LABS: African American GFR (CKD) 53 (>60 ml/min/1.73 sqM); Anion Gap 18 mmol/L; Blood Urea Nitrogen 34 mg/dL (7-17); Calcium 9.5 mg/dL (8.4-10.2); Carbon Dioxide 13 mmol/L (22-30); Chloride 103 mmol/L (98-107); Glucose 258 mg/dL (74-99); Magnesium 1.9 mg/dL (1.6-2.3); Non-African American GFR(CKD) 46 (>60 ml/min/1.73 sqM); Potassium 5.3 mmol/L (3.5-5.1); Sodium 134 mmol/L (137-145)
[2023-02-10 04:01] LABS: Glucose,Whole Blood 269 mg/dL (70-110)
[2023-02-10 04:03] LABS: Anisocytosis Slight; Basophils # (A) 0.1 k/uL (0-0.2); Basophils % (A) 1 %; Eosinophils # (A) 0.1 k/uL (0-0.7); Eosinophils % (A) 2 %; HCT 38.5 % (34.0-46.0); HGB 11.9 gm/dL (11.4-16.0); Hypochromasia Marked; Lymphocytes # (A) 0.7 k/uL (1.0-4.8); Lymphocytes % (A) 10 %; MCV 90.5 fL (80.0-100.0); Monocytes # (A) 0.5 k/uL (0-1.0); Monocytes % (A) 7 %; Neutrophils # (A) 5.8 k/uL (1.3-7.7); Neutrophils % (A) 78 %; Platelet Count 158 k/uL (150-450); RBC 4.26 m/uL (3.80-5.40); RDW 17.8 % (11.5-15.5); WBC 7.4 k/uL (3.8-10.6)
[2023-02-10 04:56] LABS: Glucose,Whole Blood 297 mg/dL (70-110)
[2023-02-10 06:19] LABS: Glucose,Whole Blood 289 mg/dL (70-110)
[2023-02-10 06:57] LABS: Glucose,Whole Blood 306 mg/dL (70-110)
[2023-02-10 07:56] LABS: Glucose,Whole Blood 293 mg/dL (70-110)
[2023-02-10 08:21] LABS: African American GFR (CKD) 57 (>60 ml/min/1.73 sqM); Anion Gap 15 mmol/L; Blood Urea Nitrogen 31 mg/dL (7-17); Calcium 9.4 mg/dL (8.4-10.2); Carbon Dioxide 19 mmol/L (22-30); Chloride 101 mmol/L (98-107); Glucose 300 mg/dL (74-99); Non-African American GFR(CKD) 49 (>60 ml/min/1.73 sqM); Sodium 135 mmol/L (137-145)
[2023-02-10 09:02] LABS: Glucose,Whole Blood 303 mg/dL (70-110)
[2023-02-10] MEDS: FERROUS SULFATE 325 MG TAB PO SCH (09:02)
[2023-02-10] MEDS: METOPROLOL SUCCINATE (ER) 50 MG TAB.ER.24H PO SCH ×2 (09:02→21:13)
[2023-02-10] MEDS: ASPIRIN 81 MG PO SCH (09:02)
[2023-02-10 10:18] LABS: Glucose,Whole Blood 304 mg/dL (70-110)
[2023-02-10] MEDS: INSULIN REGULAR 100 UNIT in SODIUM CHLORIDE 0.9% 100 ML IV SCH ×2 (10:28→19:30)
[2023-02-10 10:35] VITALS: BMI 48.2
[2023-02-10 11:06] LABS: Glucose,Whole Blood 256 mg/dL (70-110)
[2023-02-10 11:15] LABS: Glucose,Whole Blood 284 mg/dL (70-110)
[2023-02-10 12:05] LABS: Glucose,Whole Blood 244 mg/dL (70-110)
--- NOTE | 2023-02-10 12:57 | P.PN ---
Subjective Progress Note Date: 02/10/23 Hospital Course: 57-year-old legally blind female with history of type 2 diabetes, hypertension, dyslipidemia presenting with nausea and vomiting. In the ED, temperature was 98, pulse 95, respiratory rate 18, blood pressure 113/39, saturating at 99% on room air. WBC 8.4, hemoglobin 12, pH 7.19, pCO2 42, sodium 128, potassium 7.1, bicarbonate 11, anion gap 29, creatinine 1.71, blood sugars 787, urine positive for glucose and ketones, serum ketones positive. EKG shows normal sinus rhythm. Patient given calcium chloride in the ED, IV bicarbonate, as well as started on insulin drip. ICU consulted. Patient being admitted for diabetic ketoacidosis. Remains in ICU. Subjective: Patient seen and examined at bedside. No acute events overnight. Pertinent positives and negatives as discussed above, a complete review of systems was performed and all other systems are negative. Vitals Signs Reviewed. General: nontoxic, no distress, appears at stated age, morbidly obese Derm: warm, dry, has intertrigo, one of the right folds have a ulceration with slight purulent discharge, 2 more areas of crusted and indurated lesions on the abdomen, right abdominal mass Head: atraumatic, normocephalic, symmetric Eyes: EOMI, no lid lag, anicteric sclera, pupils equal round reactive to light ENT: Nose and ears atraumatic Neck: No thyromegaly, supple Mouth: no lip lesion, mucus membranes moist Cardiovascular: S1S2 reg, no murmur, no edema Lungs: clear to auscultation bilateral, no rhonchi, no rales, no wheeze, no accessory muscle use Abdominal: soft, nontender to palpation, no guarding, no appreciable organomegaly Ext: no gross muscle atrophy, muscle strength muscle strength 5 out of 5 in all 4 extremities, no contractures Neuro: CN II-XII grossly intact Psych: Alert, oriented, appropriate affect Data Reviewed Today: Pertinent Labs: Hemoglobin 11.9, sodium 135, potassium 5, creatinine 1.24, glucose range between 244 2-93 Imaging: No new imaging Assessment and Plan: Diabetic ketoacidosis History of type 2 diabetes Anion gap metabolic acidosis Hyperkalemia, resolved Acute kidney injury, resolving Acute metabolic encephalopathy, resolved Intertrigo Right abdomen mass -Insulin drip, continue -continue fluids -Zofran as needed for nausea and vomiting -Acute kidney injury likely prerenal in the setting of dehydration from DKA -Hold home lisinopril and verapamil -Can continue metoprolol -Cultures pending -Serial labs -ICU following -Telemetry -A1c pending -Keep area clean and dry at the site of skin lesions, can use nystatin powder if needed -abdominal US Chronic: Dyslipidemia History of hypertension DVT ppx: Subcu heparin Code status: Full Code Anticipated discharge place: Pending Clinical course Anticipated discharge time: Pending clinical course Objective - Vital Signs Vital signs: Vital Signs Temp 98.1 F 02/10/23 12:00 Pulse 105 H 02/10/23 12:00 Resp 16 02/10/23 12:00 BP 107/46 02/10/23 12:00 Pulse Ox 91 L 02/10/23 12:00 FiO2 Intake & Output 02/09/23 02/10/23 02/10/23 18:59 06:59 18:59 Intake Total 6860.552 7745.693 39.017 Output Total 135 1195 675 Balance 1428.255 779.693 -635.983 Weight 121.109 kg 127.3 kg 127.3 kg Intake: IV 1470 1950 D5-0.45% NaCl with KCl 450 1950 20Meq/l 1,000 ml @ 150 mls/hr IV .Q6H40M [facility] Rx# :[id number] Invasive Line 1 10 Invasive Line 2 10 Sodium Chloride 0.9% 1, 1000 000 ml @ 200 mls/hr IV . Q5H [facility] Rx#:[id number] Intake, IV Titration 93.255 24.693 39.017 Amount Insulin Regular 100 unit 93.255 24.693 39.017 In Sodium Chloride 0.9% 100 ml @ 0.1 UNITS/KG/HR 12.232 mls/hr IV .Q8H16M [facility] Rx#:[id number] Output: Urine 135 1195 675 Other: Voiding Method Indwelling Catheter Indwelling Catheter Indwelling Catheter - Labs CBC & Chem 7: 02/10/23 03:16 02/10/23 07:50 Labs: Abnormal Lab Results - Last 24 Hours (Table) 02/09/23 02/09/23 02/09/23 Range/Units 12:59 14:06 14:59 RDW (11.5-15.5) % Lymphocytes # (1.0-4.8) k/uL Sodium (137-145) mmol/L Potassium (3.5-5.1) mmol/L Carbon Dioxide (22-30) mmol/L BUN (7-17) mg/dL Creatinine (0.52-1.04) mg/dL Glucose (74-99) mg/dL POC Glucose (mg/dL) 470 H 360 H 321 H (70-110) mg/dL 02/09/23 02/09/23 02/09/23 Range/Units 15:24 15:53 17:06 RDW (11.5-15.5) % Lymphocytes # (1.0-4.8) k/uL Sodium 135 L (137-145) mmol/L Potassium (3.5-5.1) mmol/L Carbon Dioxide 20 L (22-30) mmol/L BUN 41 H (7-17) mg/dL Creatinine 1.56 H (0.52-1.04) mg/dL Glucose 255 H (74-99) mg/dL POC Glucose (mg/dL) 234 H 232 H (70-110) mg/dL 02/09/23 02/09/23 02/09/23 Range/Units 17:14 18:02 18:56 RDW (11.5-15.5) % Lymphocytes # (1.0-4.8) k/uL Sodium 136 L (137-145) mmol/L Potassium (3.5-5.1) mmol/L Carbon Dioxide 19 L (22-30) mmol/L BUN 41 H (7-17) mg/dL Creatinine 1.58 H (0.52-1.04) mg/dL Glucose 188 H (74-99) mg/dL POC Glucose (mg/dL) 132 H 119 H (70-110) mg/dL 02/09/23 02/09/23 02/09/23 Range/Units 19:59 20:54 21:58 RDW (11.5-15.5) % Lymphocytes # (1.0-4.8) k/uL Sodium (137-145) mmol/L Potassium (3.5-5.1) mmol/L Carbon Dioxide (22-30) mmol/L BUN (7-17) mg/dL Creatinine (0.52-1.04) mg/dL Glucose (74-99) mg/dL POC Glucose (mg/dL) 125 H 165 H 148 H (70-110) mg/dL 02/09/23 02/09/23 02/09/23 Range/Units 22:08 23:08 23:52 RDW (11.5-15.5) % Lymphocytes # (1.0-4.8) k/uL Sodium 134 L (137-145) mmol/L Potassium 5.3 H (3.5-5.1) mmol/L Carbon Dioxide 17 L (22-30) mmol/L BUN 38 H (7-17) mg/dL Creatinine 1.42 H (0.52-1.04) mg/dL Glucose 151 H (74-99) mg/dL POC Glucose (mg/dL) 196 H 234 H (70-110) mg/dL 02/10/23 02/10/23 02/10/23 Range/Units 01:07 01:58 03:08 RDW (11.5-15.5) % Lymphocytes # (1.0-4.8) k/uL Sodium (137-145) mmol/L Potassium (3.5-5.1) mmol/L Carbon Dioxide (22-30) mmol/L BUN (7-17) mg/dL Creatinine (0.52-1.04) mg/dL Glucose (74-99) mg/dL POC Glucose (mg/dL) 256 H 228 H 276 H (70-110) mg/dL 02/10/23 02/10/23 02/10/23 Range/Units 03:16 03:16 03:59 RDW 17.8 H (11.5-15.5) % Lymphocytes # 0.7 L (1.0-4.8) k/uL Sodium 134 L (137-145) mmol/L Potassium 5.3 H (3.5-5.1) mmol/L Carbon Dioxide 13 L (22-30) mmol/L BUN 34 H (7-17) mg/dL Creatinine 1.32 H (0.52-1.04) mg/dL Glucose 258 H (74-99) mg/dL POC Glucose (mg/dL) 269 H (70-110) mg/dL 02/10/23 02/10/23 02/10/23 Range/Units 04:54 06:17 06:56 RDW (11.5-15.5) % Lymphocytes # (1.0-4.8) k/uL Sodium (137-145) mmol/L Potassium (3.5-5.1) mmol/L Carbon Dioxide (22-30) mmol/L BUN (7-17) mg/dL Creatinine (0.52-1.04) mg/dL Glucose (74-99) mg/dL POC Glucose (mg/dL) 297 H 289 H 306 H (70-110) mg/dL 02/10/23 02/10/23 02/10/23 Range/Units 07:50 07:55 09:01 RDW (11.5-15.5) % Lymphocytes # (1.0-4.8) k/uL Sodium 135 L (137-145) mmol/L Potassium (3.5-5.1) mmol/L Carbon Dioxide 19 L (22-30) mmol/L BUN 31 H (7-17) mg/dL Creatinine 1.24 H (0.52-1.04) mg/dL Glucose 300 H (74-99) mg/dL POC Glucose (mg/dL) 293 H 303 H (70-110) mg/dL 02/10/23 02/10/23 02/10/23 Range/Units 10:15 11:05 11:14 RDW (11.5-15.5) % Lymphocytes # (1.0-4.8) k/uL Sodium (137-145) mmol/L Potassium (3.5-5.1) mmol/L Carbon Dioxide (22-30) mmol/L BUN (7-17) mg/dL Creatinine (0.52-1.04) mg/dL Glucose (74-99) mg/dL POC Glucose (mg/dL) 304 H 256 H 284 H (70-110) mg/dL 02/10/23 Range/Units 12:02 RDW (11.5-15.5) % Lymphocytes # (1.0-4.8) k/uL Sodium (137-145) mmol/L Potassium (3.5-5.1) mmol/L Carbon Dioxide (22-30) mmol/L BUN (7-17) mg/dL Creatinine (0.52-1.04) mg/dL Glucose (74-99) mg/dL POC Glucose (mg/dL) 244 H (70-110) mg/dL
[2023-02-10 13:18] LABS: Glucose,Whole Blood 234 mg/dL (70-110)
[2023-02-10 13:26] LABS: African American GFR (CKD) 66 (>60 ml/min/1.73 sqM); Anion Gap 10 mmol/L; Blood Urea Nitrogen 28 mg/dL (7-17); Calcium 9.3 mg/dL (8.4-10.2); Carbon Dioxide 21 mmol/L (22-30); Chloride 104 mmol/L (98-107); Glucose 255 mg/dL (74-99); Non-African American GFR(CKD) 58 (>60 ml/min/1.73 sqM); Potassium 4.5 mmol/L (3.5-5.1); Sodium 135 mmol/L (137-145)
[2023-02-10] MEDS ORDERED: INSULIN NPH 100 UNIT/ML 10 ML VIAL SQ ONE (13:45)
[2023-02-10 16:20] LABS: Glucose,Whole Blood 239 mg/dL (70-110)
[2023-02-10] MEDS: HEPARIN SODIUM,PORCINE 5,000 UNIT/ML 1 ML VIAL SQ SCH (16:23)
[2023-02-10] MEDS: INSULIN ASPART (NovoLOG) 100 UNIT/ML VIAL SQ SCH ×3 (16:23→21:13)
--- NOTE | 2023-02-10 18:57 | US ---
EXAMINATION TYPE: US abdomen limited DATE OF EXAM: 02/10/2023 COMPARISON: NONE CLINICAL INDICATION: Female, 57 years old with history of right abdomen; ICU patient with appearance of soft tissue swelling within RUQ that appears to be accessory lobe of tissue, no pain, no discolora tion, no injury, has had for a while TECHNIQUE: Soft tissue abd scan at palpable FINDINGS: Stock Or Delivery Clerk notes: Mobile accessory lobe of tissue protruding from RUQ may represent lipom a versus other etiology, swelling noted, area of soft and mobile. IMPRESSION: Targeted scanning along the right upper quadrant palpable site. The harness builder indicate s some type of mobile, protruding tissue. Based on the images and clinical description, the etiology is unclear. Some mild edematous change appears to be present within the tissues on the provided image s. Unclear if this represents a large lipoma or other lesion or a portion of the patient's panniculus . Correlate as to the need for further cross-sectional evaluation.
[2023-02-10 21:03] LABS: Glucose,Whole Blood 217 mg/dL (70-110)
[2023-02-10] MEDS: INSULIN DETEMIR (LEVEMIR) 100 UNIT/ML SYR SQ SCH (21:13)
[2023-02-10] MEDS: ATORVASTATIN 40 MG TAB PO SCH (21:13)
[2023-02-11] MEDS: HEPARIN SODIUM,PORCINE 5,000 UNIT/ML 1 ML VIAL SQ SCH ×3 (00:42→16:57)
[2023-02-11 02:31] LABS: Glucose,Whole Blood 258 mg/dL (70-110)
[2023-02-11] MEDS: INSULIN ASPART (NovoLOG) 100 UNIT/ML VIAL SQ SCH ×8 (02:42→21:29)
[2023-02-11] MEDS: ONDANSETRON 4 MG/2 ML VIAL IVP PRN ×2 (03:29→09:11)
[2023-02-11 05:49] LABS: African American GFR (CKD) 78 (>60 ml/min/1.73 sqM); Anion Gap 9 mmol/L; Blood Urea Nitrogen 19 mg/dL (7-17); Calcium 9.1 mg/dL (8.4-10.2); Carbon Dioxide 25 mmol/L (22-30); Chloride 101 mmol/L (98-107); Glucose 249 mg/dL (74-99); Non-African American GFR(CKD) 68 (>60 ml/min/1.73 sqM); Potassium 4.5 mmol/L (3.5-5.1); Sodium 135 mmol/L (137-145)
[2023-02-11 06:58] LABS: Glucose,Whole Blood 225 mg/dL (70-110)
[2023-02-11] MEDS: METOPROLOL SUCCINATE (ER) 50 MG TAB.ER.24H PO SCH ×2 (09:27→21:29)
[2023-02-11] MEDS: PANTOPRAZOLE 40 MG/10 ML VIAL IVP SCH (09:39)
[2023-02-11] MEDS: FERROUS SULFATE 325 MG TAB PO SCH (09:44)
[2023-02-11] MEDS: ASPIRIN 81 MG PO SCH (09:44)
[2023-02-11] MEDS: D5-0.45% NACL WITH KCL 20MEQ/L 1,000 ML IV SCH ×2 (10:34→21:30)
--- NOTE | 2023-02-11 11:05 | P.PN ---
Subjective Progress Note Date: 02/11/23 Hospital Course: 57-year-old legally blind female with history of type 2 diabetes, hypertension, dyslipidemia presenting with nausea and vomiting. In the ED, temperature was 98, pulse 95, respiratory rate 18, blood pressure 113/39, saturating at 99% on room air. WBC 8.4, hemoglobin 12, pH 7.19, pCO2 42, sodium 128, potassium 7.1, bicarbonate 11, anion gap 29, creatinine 1.71, blood sugars 787, urine positive for glucose and ketones, serum ketones positive. EKG shows normal sinus rhythm. Patient given calcium chloride in the ED, IV bicarbonate, as well as started on insulin drip. ICU consulted. Patient being admitted for diabetic ketoacidosis. Remains in ICU. off of insulin gtt. still has some nausea. Subjective: Patient seen and examined at bedside. No acute events overnight. Still has some nausea. Oliveira in place. Pertinent positives and negatives as discussed above, a complete review of systems was performed and all other systems are negative. Vitals Signs Reviewed. General: nontoxic, no distress, appears at stated age, morbidly obese Derm: warm, dry, has intertrigo, one of the right folds have a ulceration with slight purulent discharge, 2 more areas of crusted and indurated lesions on the abdomen, right abdominal mass Head: atraumatic, normocephalic, symmetric Eyes: EOMI, no lid lag, anicteric sclera, pupils equal round reactive to light ENT: Nose and ears atraumatic Neck: No thyromegaly, supple Mouth: no lip lesion, mucus membranes moist Cardiovascular: S1S2 reg, no murmur, no edema Lungs: clear to auscultation bilateral, no rhonchi, no rales, no wheeze, no accessory muscle use Abdominal: soft, nontender to palpation, no guarding, no appreciable o rganomegaly Ext: no gross muscle atrophy, muscle strength muscle strength 5 out of 5 in all 4 extremities, no contractures Neuro: CN II-XII grossly intact Psych: Alert, oriented, appropriate affect Data Reviewed Today: Pertinent Labs: Sodium 135, potassium 4.5, creatinine 0.95, blood sugars range between 217 258 Imaging: Abdominal ultrasound shows possibly a large lipoma or a portion of calvin ent's panniculus Assessment and Plan: Diabetic ketoacidosis Poorly controlled type II diabetes, A1c 16.9 Anion gap metabolic acidosis, resolved Hyperkalemia, resolved Acute kidney injury, resolved Acute metabolic encephalopathy, resolved Intertrigo Right abdomen mass -Levemir 38 units, 13 units NovoLog 3 times a day, sliding scale insulin -Continue IV fluids until patient is able to tolerate oral intake better -Zofran as needed for nausea and vomiting -Lisinopril restarted, continue metoprolol -Cultures negative growth to date -ICU following -Telemetry -Keep area clean and dry at the site of skin lesions, can use nystatin powder if needed -Abdominal pannus possibly lipoma -Physical therapy consulted, remove Oliveira catheter when patient is more mobile Chronic: Dyslipidemia History of hypertension DVT ppx: Subcu heparin Code status: Full Code Anticipated discharge place: Pending Clinical course Anticipated discharge time: Pending clinical course Objective - Vital Signs Vital signs: Vital Signs Temp 98.5 F 02/11/23 08:00 Pulse 112 H 02/11/23 10:00 Resp 18 02/11/23 10:00 BP 114/62 02/11/23 10:00 Pulse Ox 97 02/11/23 09:00 FiO2 Intake & Output 02/10/23 02/11/23 02/11/23 18:59 06:59 18:59 Intake Total 80.046 650 200 Output Total 1275 1110 300 Balance -1194.954 -460 -100 Weight 127.3 kg 127.5 kg Intake: IV 550 200 D5-0.45% NaCl with KCl 550 200 20Meq/l 1,000 ml @ 50 mls /hr IV .Q20H [facility] Rx#: [id number] Intake, IV Titration 80.046 Amount Insulin Regular 100 unit 80.046 In Sodium Chloride 0.9% 100 ml @ 0.1 UNITS/KG/HR 12.232 mls/hr IV .Q8H16M [facility] Rx#:[id number] Oral 100 Output: Urine 1275 1110 300 Other: Voiding Method Indwelling Catheter Indwelling Catheter Indwelling Catheter - Labs CBC & Chem 7: 02/10/23 03:16 02/11/23 05:21 Labs: Abnormal Lab Results - Last 24 Hours (Table) 02/10/23 02/10/23 02/10/23 Range/Units 08:33 11:05 11:14 Sodium (137-145) mmol/L Carbon Dioxide (22-30) mmol/L BUN (7-17) mg/dL Creatinine (0.52-1.04) mg/dL Glucose (74-99) mg/dL POC Glucose (mg/dL) 256 H 284 H (70-110) mg/dL Hemoglobin A1c 16.8 H (<=6.0) % 02/10/23 02/10/23 02/10/23 Range/Units 12:02 12:49 13:15 Sodium 135 L (137-145) mmol/L Carbon Dioxide 21 L (22-30) mmol/L BUN 28 H (7-17) mg/dL Creatinine 1.09 H (0.52-1.04) mg/dL Glucose 255 H (74-99) mg/dL POC Glucose (mg/dL) 244 H 234 H (70-110) mg/dL Hemoglobin A1c (<=6.0) % 02/10/23 02/10/23 02/11/23 Range/Units 16:18 21:01 02:30 Sodium (137-145) mmol/L Carbon Dioxide (22-30) mmol/L BUN (7-17) mg/dL Creatinine (0.52-1.04) mg/dL Glucose (74-99) mg/dL POC Glucose (mg/dL) 239 H 217 H 258 H (70-110) mg/dL Hemoglobin A1c (<=6.0) % 02/11/23 02/11/23 Range/Units 05:21 06:56 Sodium 135 L (137-145) mmol/L Carbon Dioxide (22-30) mmol/L BUN 19 H (7-17) mg/dL Creatinine (0.52-1.04) mg/dL Glucose 249 H (74-99) mg/dL POC Glucose (mg/dL) 225 H (70-110) mg/dL Hemoglobin A1c (<=6.0) % Microbiology - Last 24 Hours (Table) 02/09/23 17:14 Blood Culture - Preliminary Blood
[2023-02-11 11:28] LABS: Glucose,Whole Blood 177 mg/dL (70-110)
--- NOTE | 2023-02-11 11:54 | P.PN ---
Subjective Progress Note Date: 02/11/23 Principal diagnosis: Acute DKA I am seeing this patient in new consultation today 02/10/2023 for acute diabetic ketoacidosis. Patient is a 57-year-old white female past medical history significant for diabetes mellitus type 2, hypertension, hyperlipidemia, obesity, and she is legally blind. Patient herself is a poor historian, and most of this HPI is taken from chart review. She reportedly manages her diabetes at home with a combination of Januvia, Actos, and weekly injections of Ozempic. Apparently, the patient presented to the emergency room via EMS yesterday morning with complaints of nausea and vomiting with hyperglycemia. She was found to be in acute DKA. Serum bicarb was 11, anion gap 29, blood glucose 787, and she was acetone positive. She was started on the DKA protocol. Patient is currently lying in bed, on room air, in no acute distress. She is confused and only oriented to self. Abdomen is soft and the patient denies any abdominal pain. No further nausea or vomiting. Denies any urinary complaints. Urinalysis was unremarkable for UTI. CBC was unremarkable. No leukocytosis. She is afebrile. Most recent BMP shows sodium 134, potassium 5.3, chloride 101, serum bicarb 17, anion gap 16, BUN 38, creatinine 1.42, glucose 151. Insulin is currently infusing per protocol. D5W0.45% normal salineKCl 20 is infusing at 150 ML's per hour. Urine output is in order of 40-50 mL per hour. Patient appears hemodynamically stable, and will be monitored in the intensive care unit until her DKA resolves. Patient was reevaluated today on 02/11/2023, patient remains in the ICU, however she is doing much better, and her anion gap has closed blood sugar is under control, patient is off insulin drip. She is on 2 L nasal cannula does not seem to be in any distress and she is basically asymptomatic hence I would recommend addressing the patient out of the ICU to medical medical floor and discharge planning to be addressed by the admitting physician. Basic metabolic profile today is normal bicarb is 25, blood sugar is 177. Objective - Vital Signs Vital signs: Vital Signs Temp 98.5 F 02/11/23 08:00 Pulse 112 H 02/11/23 10:00 Resp 18 02/11/23 10:00 BP 114/62 02/11/23 10:00 Pulse Ox 97 02/11/23 09:00 FiO2 Intake & Output 02/10/23 02/11/23 02/11/23 18:59 06:59 18:59 Intake Total 80.046 650 200 Output Total 1275 1110 300 Balance -1194.954 -460 -100 Weight 127.3 kg 127.5 kg Intake: IV 550 200 D5-0.45% NaCl with KCl 550 200 20Meq/l 1,000 ml @ 50 mls /hr IV .Q20H [facility] Rx#: [id number] Intake, IV Titration 80.046 Amount Insulin Regular 100 unit 80.046 In Sodium Chloride 0.9% 100 ml @ 0.1 UNITS/KG/HR 12.232 mls/hr IV .Q8H16M [facility] Rx#:[id number] Oral 100 Output: Urine 1275 1110 300 Other: Voiding Method Indwelling Catheter Indwelling Catheter Indwelling Catheter - Exam Physical Exam: Revealed 57-year-old female obese in no distress Head: Atraumatic normocephalic short obese neck. HEENT:[Neck is supple.] [No neck masses.] [No thyromegaly.] [No JVD.] Chest: [Clear throughout, no crackles, no rhonchi, no wheezes.] Cardiac Exam: [Normal S1 and S2, no S3 gallop, no murmur.] Abdomen: [Soft, nontender, no megaly, no rebound, no guarding, normal bowel sounds.] Extremities: [No clubbing, no edema, no cyanosis.] Neurological Exam: [No focal neurologic deficit.] Alert oriented 3 Psychiatric: Depressed mood, flat affect, normal mental status Skin: No rashes Musculoskeletal: No deformities and no limitation of range of motion - Labs CBC & Chem 7: 02/10/23 03:16 02/11/23 05:21 Labs: Abnormal Lab Results - Last 24 Hours (Table) 02/10/23 02/10/23 02/10/23 Range/Units 08:33 12:02 12:49 Sodium 135 L (137-145) mmol/L Carbon Dioxide 21 L (22-30) mmol/L BUN 28 H (7-17) mg/dL Creatinine 1.09 H (0.52-1.04) mg/dL Glucose 255 H (74-99) mg/dL POC Glucose (mg/dL) 244 H (70-110) mg/dL Hemoglobin A1c 16.8 H (<=6.0) % 02/10/23 02/10/23 02/10/23 Range/Units 13:15 16:18 21:01 Sodium (137-145) mmol/L Carbon Dioxide (22-30) mmol/L BUN (7-17) mg/dL Creatinine (0.52-1.04) mg/dL Glucose (74-99) mg/dL POC Glucose (mg/dL) 234 H 239 H 217 H (70-110) mg/dL Hemoglobin A1c (<=6.0) % 02/11/23 02/11/23 02/11/23 Range/Units 02:30 05:21 06:56 Sodium 135 L (137-145) mmol/L Carbon Dioxide (22-30) mmol/L BUN 19 H (7-17) mg/dL Creatinine (0.52-1.04) mg/dL Glucose 249 H (74-99) mg/dL POC Glucose (mg/dL) 258 H 225 H (70-110) mg/dL Hemoglobin A1c (<=6.0) % 02/11/23 Range/Units 11:26 Sodium (137-145) mmol/L Carbon Dioxide (22-30) mmol/L BUN (7-17) mg/dL Creatinine (0.52-1.04) mg/dL Glucose (74-99) mg/dL POC Glucose (mg/dL) 177 H (70-110) mg/dL Hemoglobin A1c (<=6.0) % Microbiology - Last 24 Hours (Table) 02/09/23 17:14 Blood Culture - Preliminary Blood Assessment and Plan Assessment: Impression: Acute diabetic ketoacidosis Acute anion gap metabolic acidosis secondary to DKA Acute kidney injury secondary to DKA/dehydration Acute metabolic encephalopathy, resolved secondary to DKA Type 2 diabetes Benign essential hypertension Legally blind Morbid obesity Recommendation: Continue sliding scale insulin and follow Accu-Cheks Continue ADA diets Transfer patient out of the ICU to a regular medical floor Consider discharge planning if cleared by admitting physician Patient should have 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 We will continue to follow as needed Time with Patient: Less than 30
[2023-02-11] MEDS ORDERED: PROCHLORPERAZINE INJ 10 MG/2 ML VIAL IVP PRN (15:41)
[2023-02-11 16:47] LABS: Glucose,Whole Blood 193 mg/dL (70-110)
[2023-02-11 20:57] LABS: Glucose,Whole Blood 156 mg/dL (70-110)
[2023-02-11] MEDS: ATORVASTATIN 40 MG TAB PO SCH (21:29)
[2023-02-11] MEDS: INSULIN DETEMIR (LEVEMIR) 100 UNIT/ML SYR SQ SCH (21:29)
[2023-02-12] MEDS: HEPARIN SODIUM,PORCINE 5,000 UNIT/ML 1 ML VIAL SQ SCH ×4 (00:52→23:46)
[2023-02-12 02:33] LABS: Glucose,Whole Blood 151 mg/dL (70-110)
[2023-02-12] MEDS: INSULIN ASPART (NovoLOG) 100 UNIT/ML VIAL SQ SCH ×8 (03:13→21:48)
[2023-02-12 05:52] LABS: Glucose,Whole Blood 170 mg/dL (70-110)
[2023-02-12] MEDS: PANTOPRAZOLE 40 MG/10 ML VIAL IVP SCH (09:47)
[2023-02-12] MEDS: ASPIRIN 81 MG PO SCH (09:48)
[2023-02-12] MEDS: FERROUS SULFATE 325 MG TAB PO SCH (09:48)
[2023-02-12] MEDS: METOPROLOL SUCCINATE (ER) 50 MG TAB.ER.24H PO SCH ×2 (09:48→21:48)
[2023-02-12] MEDS: ACETAMINOPHEN TAB 325 MG TAB PO PRN (09:59)
[2023-02-12] MEDS: lisinopriL 10 MG TAB PO SCH (10:00)
[2023-02-12 11:16] LABS: Glucose,Whole Blood 125 mg/dL (70-110)
[2023-02-12 13:35] LABS: BUN/Creat Ratio 9.62 Ratio (12.00-20.00); Blood Urea Nitrogen 12.5 mg/dL (9.0-27.0); Carbon Dioxide 26.2 mmol/L (21.6-31.8); Chloride 100 mmol/L (96-109); Glucose 189 mg/dL (70-110); Potassium 4.7 mmol/L (3.5-5.5); Sodium 136 mmol/L (135-145)
--- NOTE | 2023-02-12 13:42 | P.PN ---
Subjective Progress Note Date: 02/12/23 Hospital Course: 57-year-old legally blind female with history of type 2 diabetes, hypertension, dyslipidemia presenting with nausea and vomiting. In the ED, temperature was 98, pulse 95, respiratory rate 18, blood pressure 113/39, saturating at 99% on room air. WBC 8.4, hemoglobin 12, pH 7.19, pCO2 42, sodium 128, potassium 7.1, bicarbonate 11, anion gap 29, creatinine 1.71, blood sugars 787, urine positive for glucose and ketones, serum ketones positive. EKG shows normal sinus rhythm. Patient given calcium chloride in the ED, IV bicarbonate, as well as started on insulin drip. ICU consulted. Patient being admitted for diabetic ketoacidosis. Now out of ICU. off of insulin gtt. still has nausea unable to have oral intake. On Zofran and Compazine, unable to tolerate regular due to past swelling Subjective: Patient seen and examined at bedside. No acute events overnight. Still has some nausea. Oliveira in place. Pertinent positives and negatives as discussed above, a complete review of systems was performed and all other systems are negative. Vitals Signs Reviewed. General: nontoxic, no distress, appears at stated age, morbidly obese Derm: warm, dry, has intertrigo, one of the right folds have a ulceration with slight purulent discharge, 2 more areas of crusted and indurated lesions on the abdomen, right abdominal mass Head: atraumatic, normocephalic, symmetric Eyes: EOMI, no lid lag, anicteric sclera, pupils equal round reactive to light ENT: Nose and ears atraumatic Neck: No thyromegaly, supple Mouth: no lip lesion, mucus membranes moist Cardiovascular: S1S2 reg, no murmur, no edema Lungs: clear to auscultation bilateral, no rhonchi, no rales, no wheeze, no accessory muscle use Abdominal: soft, nontender to palpation, no guarding, no appreciable organomegaly Ext: no gross muscle atrophy, muscle strength muscle strength 5 out of 5 in all 4 extremities, no contractures Neuro: CN II-XII grossly intact Psych: Alert, oriented, appropriate affect Data Reviewed Today: Pertinent Labs: Sodium 136, potassium 4.7, creatinine 1.3, glucose range between 151-189 Imaging: No new imaging Assessment and Plan: Diabetic ketoacidosis Poorly controlled type II diabetes, A1c 16.9 Anion gap metabolic acidosis, resolved Hyperkalemia, resolved Acute kidney injury, resolved Acute metabolic encephalopathy, resolved Intertrigo Right abdomen mass -Levemir 38 units, 13 units NovoLog 3 times a day, sliding scale insulin -Continue IV fluids until patient is able to tolerate oral intake better -Zofran and Compazine as needed for nausea and vomiting -Wonder if patient have diabetic gastroparesis -Continue lisinopril and metoprolol -Cultures negative growth to date -ICU following -Telemetry -Keep area clean and dry at the site of skin lesions, can use nystatin powder if needed -Abdominal pannus possibly lipoma -Remove Oliveira catheter when patient is more mobile Chronic: Dyslipidemia History of hypertension DVT ppx: Subcu heparin Code status: Full Code Anticipated discharge place: Pending Clinical course Anticipated discharge time: Pending clinical course Objective - Vital Signs Vital signs: Vital Signs Temp 98.3 F 02/12/23 06:52 Pulse 89 02/12/23 06:52 Resp 17 02/12/23 08:00 BP 99/81 02/12/23 06:52 Pulse Ox 95 02/12/23 06:52 FiO2 Intake & Output 02/11/23 02/12/23 02/12/23 18:59 06:59 18:59 Intake Total 425 Output Total 505 400 Balance -80 -400 Weight 127.5 kg Intake: IV 425 D5-0.45% NaCl with KCl 425 20Meq/l 1,000 ml @ 50 mls /hr IV .Q20H [facility] Rx#: [id number] Output: Urine 505 400 Other: Voiding Method Indwelling Catheter Indwelling Catheter Indwelling Catheter # Voids 2 # Bowel Movements 0 - Labs CBC & Chem 7: 02/10/23 03:16 02/12/23 06:36 Labs: Abnormal Lab Results - Last 24 Hours (Table) 02/11/23 02/11/23 02/12/23 Range/Units 16:46 20:56 02:32 Est GFR (CKD-EPI) (>=60) BUN/Creatinine Ratio (12.00-20.00) Ratio Glucose (70-110) mg/dL POC Glucose (mg/dL) 193 H 156 H 151 H (70-110) mg/dL 02/12/23 02/12/23 02/12/23 Range/Units 05:50 06:36 11:15 Est GFR (CKD-EPI) 49 L (>=60) BUN/Creatinine Ratio 9.62 L (12.00-20.00) Ratio Glucose 189 H (70-110) mg/dL POC Glucose (mg/dL) 170 H 125 H (70-110) mg/dL Microbiology - Last 24 Hours (Table) 02/09/23 17:14 Blood Culture - Preliminary Blood
[2023-02-12] MEDS: D5-0.45% NACL WITH KCL 20MEQ/L 1,000 ML IV SCH (15:58)
[2023-02-12 16:25] LABS: Glucose,Whole Blood 176 mg/dL (70-110)
[2023-02-12 20:29] LABS: Glucose,Whole Blood 158 mg/dL (70-110)
[2023-02-12] MEDS: ATORVASTATIN 40 MG TAB PO SCH (21:48)
[2023-02-12] MEDS: INSULIN DETEMIR (LEVEMIR) 100 UNIT/ML SYR SQ SCH (21:51)
[2023-02-13 02:07] LABS: Glucose,Whole Blood 236 mg/dL (70-110)
[2023-02-13] MEDS: INSULIN ASPART (NovoLOG) 100 UNIT/ML VIAL SQ SCH ×8 (02:57→20:37)
[2023-02-13 06:02] LABS: Glucose,Whole Blood 208 mg/dL (70-110)
[2023-02-13] MEDS: ASPIRIN 81 MG PO SCH (08:09)
[2023-02-13] MEDS: FERROUS SULFATE 325 MG TAB PO SCH (08:10)
[2023-02-13] MEDS: HEPARIN SODIUM,PORCINE 5,000 UNIT/ML 1 ML VIAL SQ SCH ×2 (08:10→17:27)
[2023-02-13] MEDS: METOPROLOL SUCCINATE (ER) 50 MG TAB.ER.24H PO SCH ×2 (08:10→20:35)
[2023-02-13] MEDS: PANTOPRAZOLE 40 MG/10 ML VIAL IVP SCH (08:10)
[2023-02-13] MEDS: lisinopriL 10 MG TAB PO SCH (08:10)
--- NOTE | 2023-02-13 10:56 | P.PN ---
Subjective Progress Note Date: 02/13/23 Hospital Course: 57-year-old legally blind female with history of type 2 diabetes, hypertension, dyslipidemia presenting with nausea and vomiting. In the ED, temperature was 98, pulse 95, respiratory rate 18, blood pressure 113/39, saturating at 99% on room air. WBC 8.4, hemoglobin 12, pH 7.19, pCO2 42, sodium 128, potassium 7.1, bicarbonate 11, anion gap 29, creatinine 1.71, blood sugars 787, urine positive for glucose and ketones, serum ketones positive. EKG shows normal sinus rhythm. Patient given calcium chloride in the ED, IV bicarbonate, as well as started on insulin drip. ICU consulted. Patient being admitted for diabetic ketoacidosis. Now out of ICU. off of insulin gtt. Now able to have some oral intake. Pending [facility] discharge. Subjective: Patient seen and examined at bedside. No acute events overnight. Nausea improved. Oliveira in place. Pertinent positives and negatives as discussed above, a complete review of systems was performed and all other systems are negative. Vitals Signs Reviewed. General: nontoxic, no distress, appears at stated age, morbidly obese Derm: warm, dry, has intertrigo, one of the right folds have a ulceration with slight purulent discharge, 2 more areas of crusted and indurated lesions on the abdomen, right abdominal mass Head: atraumatic, normocephalic, symmetric Eyes: EOMI, no lid lag, anicteric sclera, pupils equal round reactive to light ENT: Nose and ears atraumatic Neck: No thyromegaly, supple Mouth: no lip lesion, mucus membranes moist Cardiovascular: S1S2 reg, no murmur, no edema Lungs: clear to auscultation bilateral, no rhonchi, no rales, no wheeze, no accessory muscle use Abdominal: soft, nontender to palpation, no guarding, no appreciable organomegaly Ext: no gross muscle atrophy, muscle strength muscle strength 5 out of 5 in all 4 extremities, no contractures Neuro: CN II-XII grossly intact Psych: Alert, oriented, appropriate affect Data Reviewed Today: Pertinent Labs: Blood sugars range between 158-236 Imaging: No new imaging Assessment and Plan: Diabetic ketoacidosis Poorly controlled type II diabetes, A1c 16.9 Anion gap metabolic acidosis, resolved Hyperkalemia, resolved Acute kidney injury, resolved Acute metabolic encephalopathy, resolved Intertrigo Right abdomen mass -Levemir 38 units, 13 units NovoLog 3 times a day, sliding scale insulin -Continue IV fluids until patient is able to tolerate oral intake better -Zofran and Compazine as needed for nausea and vomiting -Patient likely has diabetic gastroparesis -Continue lisinopril and metoprolol -Cultures negative growth to date -Telemetry -Keep area clean and dry at the site of skin lesions, can use nystatin powder if needed -Abdominal pannus possibly lipoma -Remove Oliveira catheter when patient is more mobile Chronic: Dyslipidemia History of hypertension DVT ppx: Subcu heparin Code status: Full Code Anticipated discharge place: Subacute rehab Anticipated discharge time: Likely Wednesday Objective - Vital Signs Vital signs: Vital Signs Temp 98.1 F 02/13/23 06:42 Pulse 86 02/13/23 06:42 Resp 17 02/13/23 06:42 BP 103/64 02/13/23 06:42 Pulse Ox 98 02/13/23 06:42 FiO2 Intake & Output 02/12/23 02/13/23 02/13/23 18:59 06:59 18:59 Intake Total 100 Output Total 200 1100 Balance -100 -1100 Intake: Oral 100 Output: Urine 200 1100 Other: Voiding Method Indwelling Catheter Indwelling Catheter - Labs CBC & Chem 7: 02/10/23 03:16 02/12/23 06:36 Labs: Abnormal Lab Results - Last 24 Hours (Table) 02/12/23 02/12/23 02/12/23 Range/Units 06:36 11:15 16:23 Est GFR (CKD-EPI) 49 L (>=60) BUN/Creatinine Ratio 9.62 L (12.00-20.00) Ratio Glucose 189 H (70-110) mg/dL POC Glucose (mg/dL) 125 H 176 H (70-110) mg/dL 02/12/23 02/13/23 02/13/23 Range/Units 20:28 02:05 06:01 Est GFR (CKD-EPI) (>=60) BUN/Creatinine Ratio (12.00-20.00) Ratio Glucose (70-110) mg/dL POC Glucose (mg/dL) 158 H 236 H 208 H (70-110) mg/dL Microbiology - Last 24 Hours (Table) 02/09/23 17:14 Blood Culture - Preliminary Blood
[2023-02-13 11:10] LABS: Glucose,Whole Blood 216 mg/dL (70-110)
[2023-02-13] MEDS: HYDROcodone/APAP 5-325MG 1 EACH TAB PO PRN ×2 (11:49→20:35)
[2023-02-13] MEDS: D5-0.45% NACL WITH KCL 20MEQ/L 1,000 ML IV SCH (11:51)
[2023-02-13 13:50] LABS: Glucose,Whole Blood 198 mg/dL (70-110)
[2023-02-13 16:40] LABS: Glucose,Whole Blood 217 mg/dL (70-110)
[2023-02-13] MEDS: ATORVASTATIN 40 MG TAB PO SCH (20:35)
[2023-02-13] MEDS: INSULIN DETEMIR (LEVEMIR) 100 UNIT/ML SYR SQ SCH (20:36)
[2023-02-13 20:55] LABS: Glucose,Whole Blood 220 mg/dL (70-110)
[2023-02-14] MEDS: HEPARIN SODIUM,PORCINE 5,000 UNIT/ML 1 ML VIAL SQ SCH ×3 (00:11→18:01)
[2023-02-14] MEDS: INSULIN ASPART (NovoLOG) 100 UNIT/ML VIAL SQ SCH ×8 (02:48→21:50)
[2023-02-14 02:51] LABS: Glucose,Whole Blood 167 mg/dL (70-110)
[2023-02-14 05:41] LABS: Glucose,Whole Blood 147 mg/dL (70-110)
[2023-02-14] MEDS: lisinopriL 10 MG TAB PO SCH (07:46)
[2023-02-14] MEDS: ASPIRIN 81 MG PO SCH (07:49)
[2023-02-14] MEDS: FERROUS SULFATE 325 MG TAB PO SCH (07:49)
[2023-02-14] MEDS: METOPROLOL SUCCINATE (ER) 50 MG TAB.ER.24H PO SCH ×2 (07:56→21:50)
[2023-02-14] MEDS: D5-0.45% NACL WITH KCL 20MEQ/L 1,000 ML IV SCH (08:49)
[2023-02-14] MEDS: PANTOPRAZOLE 40 MG/10 ML VIAL IVP SCH (08:50)
[2023-02-14] MEDS ORDERED: bisacodyL 10 MG SUPP RECTAL STA (09:33)
[2023-02-14 11:43] LABS: Glucose,Whole Blood 161 mg/dL (70-110)
[2023-02-14] MEDS: HYDROcodone/APAP 5-325MG 1 EACH TAB PO PRN ×2 (12:41→22:21)
--- NOTE | 2023-02-14 14:13 | P.PN ---
Subjective Progress Note Date: 02/14/23 Hospital Course: 57-year-old legally blind female with history of type 2 diabetes, hypertension, dyslipidemia presenting with nausea and vomiting. In the ED, temperature was 98, pulse 95, respiratory rate 18, blood pressure 113/39, saturating at 99% on room air. WBC 8.4, hemoglobin 12, pH 7.19, pCO2 42, sodium 128, potassium 7.1, bicarbonate 11, anion gap 29, creatinine 1.71, blood sugars 787, urine positive for glucose and ketones, serum ketones positive. EKG shows normal sinus rhythm. Patient given calcium chloride in the ED, IV bicarbonate, as well as started on insulin drip. ICU consulted. Patient being admitted for diabetic ketoacidosis. Now out of ICU. off of insulin gtt. Now able to have some oral intake. Pending [facility] discharge. Subjective: Patient seen and examined at bedside. No acute events overnight. Nausea improved. Oliveira in place. Pertinent positives and negatives as discussed above, a complete review of systems was performed and all other systems are negative. Vitals Signs Reviewed. General: nontoxic, no distress, appears at stated age, morbidly obese Derm: warm, dry, has intertrigo, one of the right folds have a ulceration with slight purulent discharge, 2 more areas of crusted and indurated lesions on the abdomen, right abdominal mass Head: atraumatic, normocephalic, symmetric ENT: Nose and ears atraumatic Neck: No thyromegaly, supple Mouth: no lip lesion, mucus membranes moist Cardiovascular: S1S2 reg, no murmur, no edema Lungs: clear to auscultation bilateral, no rhonchi, no rales, no wheeze, no accessory muscle use Abdominal: soft, nontender to palpation, no guarding, no appreciable organomegaly Ext: no gross muscle atrophy, muscle strength muscle strength 5 out of 5 in all 4 extremities, no contractures Neuro: legally blind Psych: Alert, oriented, appropriate affect Data Reviewed Today: Pertinent Labs: Blood sugars range between 147-220 Imaging: No new imaging Assessment and Plan: Diabetic ketoacidosis Poorly controlled type II diabetes, A1c 16.9 Anion gap metabolic acidosis, resolved Hyperkalemia, resolved Acute kidney injury, resolved Acute metabolic encephalopathy, resolved Intertrigo Right abdomen mass Constipation -Levemir 38 units, 13 units NovoLog 3 times a day, sliding scale insulin -Continue IV fluids until patient is able to tolerate oral intake better -Zofran and Compazine as needed for nausea and vomiting -Patient likely has diabetic gastroparesis -Continue lisinopril and metoprolol -Cultures negative growth to date -Telemetry -Keep area clean and dry at the site of skin lesions, can use nystatin powder if needed -Abdominal pannus possibly lipoma -Remove Oliveira catheter when patient is more mobile -Bisacodyl suppository now, MiraLAX and senna scheduled Chronic: Dyslipidemia History of hypertension DVT ppx: Subcu heparin Code status: Full Code Anticipated discharge place: Subacute rehab Anticipated discharge time: Likely Wednesday Objective - Vital Signs Vital signs: Vital Signs Temp 98.1 F 02/14/23 07:17 Pulse 86 02/14/23 07:17 Resp 20 02/14/23 08:00 BP 89/56 02/14/23 07:17 Pulse Ox 97 02/14/23 07:17 FiO2 Intake & Output 02/13/23 02/14/23 02/14/23 18:59 06:59 18:59 Intake Total 450 Output Total 500 551 Balance -50 -551 Intake: Oral 450 Output: Urine 500 550 Uretheral (Oliveira) 550 Stool 1 Other: Voiding Method Indwelling Catheter Indwelling Catheter Indwelling Catheter # Voids 0 - Labs CBC & Chem 7: 02/10/23 03:16 02/12/23 06:36 Labs: Abnormal Lab Results - Last 24 Hours (Table) 02/13/23 02/13/23 02/14/23 Range/Units 16:39 20:54 02:44 POC Glucose (mg/dL) 217 H 220 H 167 H (70-110) mg/dL 02/14/23 02/14/23 Range/Units 05:39 11:41 POC Glucose (mg/dL) 147 H 161 H (70-110) mg/dL
[2023-02-14 16:38] LABS: Glucose,Whole Blood 249 mg/dL (70-110)
[2023-02-14 20:29] LABS: Glucose,Whole Blood 223 mg/dL (70-110)
[2023-02-14] MEDS: ATORVASTATIN 40 MG TAB PO SCH (21:50)
[2023-02-14] MEDS: INSULIN DETEMIR (LEVEMIR) 100 UNIT/ML SYR SQ SCH (21:51)
[2023-02-15] MEDS: HEPARIN SODIUM,PORCINE 5,000 UNIT/ML 1 ML VIAL SQ SCH ×4 (00:36→21:52)
[2023-02-15 01:56] LABS: Glucose,Whole Blood 214 mg/dL (70-110)
[2023-02-15] MEDS: INSULIN ASPART (NovoLOG) 100 UNIT/ML VIAL SQ SCH ×8 (02:09→21:39)
[2023-02-15] MEDS: D5-0.45% NACL WITH KCL 20MEQ/L 1,000 ML IV SCH (05:24)
[2023-02-15 05:43] LABS: Glucose,Whole Blood 189 mg/dL (70-110)
[2023-02-15] MEDS: METOPROLOL SUCCINATE (ER) 50 MG TAB.ER.24H PO SCH ×2 (09:41→21:41)
[2023-02-15] MEDS: lisinopriL 10 MG TAB PO SCH (09:41)
[2023-02-15] MEDS: SENNOSIDES 8.6 MG TAB PO SCH (09:43)
[2023-02-15] MEDS: FERROUS SULFATE 325 MG TAB PO SCH (09:43)
[2023-02-15] MEDS: polyethylene glycoL 3350 17 GM POWD.PACK PO SCH (09:43)
[2023-02-15] MEDS: ASPIRIN 81 MG PO SCH (09:43)
[2023-02-15] MEDS: PANTOPRAZOLE 40 MG/10 ML VIAL IVP SCH (09:58)
[2023-02-15 11:47] LABS: Glucose,Whole Blood 165 mg/dL (70-110)
[2023-02-15] MEDS: ERYTHROMYCIN 250 MG TAB PO SCH ×2 (12:21→17:10)
[2023-02-15] MEDS: HYDROcodone/APAP 5-325MG 1 EACH TAB PO PRN (12:22)
--- NOTE | 2023-02-15 13:31 | P.PN ---
Subjective Progress Note Date: 02/15/23 Hospital Course: 57-year-old legally blind female with history of type 2 diabetes, hypertension, dyslipidemia presenting with nausea and vomiting. In the ED, temperature was 98, pulse 95, respiratory rate 18, blood pressure 113/39, saturating at 99% on room air. WBC 8.4, hemoglobin 12, pH 7.19, pCO2 42, sodium 128, potassium 7.1, bicarbonate 11, anion gap 29, creatinine 1.71, blood sugars 787, urine positive for glucose and ketones, serum ketones positive. EKG shows normal sinus rhythm. Patient given calcium chloride in the ED, IV bicarbonate, as well as started on insulin drip. ICU consulted. Patient being admitted for diabetic ketoacidosis. Now out of ICU. off of insulin gtt. Now able to have some oral intake. Still having difficulty, likely has diabetic gastroparesis. Unable to take Reglan due to past ALLERGY with facial swelling. Started on erythromycin. Pending [facility] discharge. Subjective: Patient seen and examined at bedside. No acute events overnight. Continues to have nausea and vomiting after eating. Pertinent positives and negatives as discussed above, a complete review of systems was performed and all other systems are negative. Vitals Signs Reviewed. General: nontoxic, no distress, appears at stated age, morbidly obese Derm: warm, dry, has intertrigo, one of the right folds have a ulceration with slight purulent discharge, 2 more areas of crusted and indurated lesions on the abdomen, right abdominal mass Head: atraumatic, normocephalic, symmetric ENT: Nose and ears atraumatic Neck: No thyromegaly, supple Mouth: no lip lesion, mucus membranes moist Cardiovascular: S1S2 reg, no murmur, no edema Lungs: clear to auscultation bilateral, no rhonchi, no rales, no wheeze, no accessory muscle use Abdominal: soft, nontender to palpation, no guarding, no appreciable organomegaly Ext: no gross muscle atrophy, muscle strength muscle strength 5 out of 5 in all 4 extremities, no contractures Neuro: legally blind Psych: Alert, oriented, appropriate affect Data Reviewed Today: Pertinent Labs: Blood sugars range between 165-214 Imaging: No new imaging Assessment and Plan: Diabetic ketoacidosis, resolved Poorly controlled type II diabetes, A1c 16.9 Anion gap metabolic acidosis, resolved Hyperkalemia, resolved Acute kidney injury, resolved Acute metabolic encephalopathy, resolved Intertrigo Right abdomen mass Constipation, resolved -Levemir 38 units, 13 units NovoLog 3 times a day, sliding scale insulin -Continue IV fluids until patient is able to tolerate oral intake better -Zofran and Compazine as needed for nausea and vomiting -Patient likely has diabetic gastroparesis -Unable to tolerate Reglan due to ALLERGY, will start on erythromycin -Continue lisinopril and metoprolol -Cultures negative growth to date -Telemetry -Keep area clean and dry at the site of skin lesions, can use nystatin powder if needed -Abdominal pannus possibly lipoma Chronic: Dyslipidemia History of hypertension DVT ppx: Subcu heparin Code status: Full Code Anticipated discharge place: Subacute rehab Anticipated discharge time: Likely tomorrow Objective - Vital Signs Vital signs: Vital Signs Temp 97.4 F L 02/15/23 07:41 Pulse 47 L 02/15/23 07:41 Resp 18 02/15/23 07:41 BP 98/58 02/15/23 07:41 Pulse Ox 96 02/15/23 07:41 FiO2 Intake & Output 02/14/23 02/15/23 02/15/23 18:59 06:59 18:59 Intake Total 300 Output Total 551 Balance -251 Intake: Oral 300 Output: Urine 550 Uretheral (Oliveira) 550 Stool 1 Other: Voiding Method Indwelling Catheter Toilet External Catheter # Voids 1 2 - Labs CBC & Chem 7: 02/10/23 03:16 02/12/23 06:36 Labs: Abnormal Lab Results - Last 24 Hours (Table) 02/14/23 02/14/23 02/15/23 Range/Units 16:37 20:27 01:54 POC Glucose (mg/dL) 249 H 223 H 214 H (70-110) mg/dL 02/15/23 02/15/23 Range/Units 05:42 11:46 POC Glucose (mg/dL) 189 H 165 H (70-110) mg/dL Microbiology - Last 24 Hours (Table) 02/09/23 17:14 Blood Culture - Final Blood
[2023-02-15 17:04] LABS: Glucose,Whole Blood 76 mg/dL (70-110)
[2023-02-15 20:30] LABS: Glucose,Whole Blood 124 mg/dL (70-110)
[2023-02-15] MEDS: ATORVASTATIN 40 MG TAB PO SCH (21:46)
[2023-02-15] MEDS: INSULIN DETEMIR (LEVEMIR) 100 UNIT/ML SYR SQ SCH (21:46)
[2023-02-16 02:44] LABS: Glucose,Whole Blood 104 mg/dL (70-110)
[2023-02-16] MEDS: INSULIN ASPART (NovoLOG) 100 UNIT/ML VIAL SQ SCH ×5 (03:53→12:15)
[2023-02-16 06:18] LABS: Glucose,Whole Blood 96 mg/dL (70-110)
[2023-02-16] MEDS: D5-0.45% NACL WITH KCL 20MEQ/L 1,000 ML IV SCH (07:40)
[2023-02-16 09:15] VITALS: BP 135/75; PULSE 80; RESP 19; TEMP 97.7
[2023-02-16] MEDS: ERYTHROMYCIN 250 MG TAB PO SCH ×2 (09:22→12:14)
[2023-02-16] MEDS: HEPARIN SODIUM,PORCINE 5,000 UNIT/ML 1 ML VIAL SQ SCH (09:22)
[2023-02-16] MEDS: METOPROLOL SUCCINATE (ER) 50 MG TAB.ER.24H PO SCH (09:23)
[2023-02-16] MEDS: ASPIRIN 81 MG PO SCH (09:23)
[2023-02-16] MEDS: lisinopriL 10 MG TAB PO SCH (09:23)
[2023-02-16] MEDS: FERROUS SULFATE 325 MG TAB PO SCH (09:23)
[2023-02-16] MEDS: polyethylene glycoL 3350 17 GM POWD.PACK PO SCH (09:23)
[2023-02-16] MEDS: SENNOSIDES 8.6 MG TAB PO SCH (09:23)
[2023-02-16] MEDS: PANTOPRAZOLE 40 MG/10 ML VIAL IVP SCH (09:24)
[2023-02-16 11:39] LABS: Glucose,Whole Blood 168 mg/dL (70-110)
--- NOTE | 2023-02-16 12:38 | P.DS ---
Providers Date of admission: 02/09/23 14:26 Expected date of discharge: 02/16/23 Attending physician: Kyle Franco MD Consults: 02/09/23 14:26 Consult Physician Stat Consulting Provider: Shaina Syed Consult Reason/Comments: Diabetic ketoacidosis Do you want consulting provider notified?: Yes Primary care physician: Stated None Hospital Course: 57-year-old legally blind female with history of type 2 diabetes, hypertension, dyslipidemia presenting with nausea and vomiting. In the ED, temperature was 98, pulse 95, respiratory rate 18, blood pressure 113/39, saturating at 99% on room air. WBC 8.4, hemoglobin 12, pH 7.19, pCO2 42, sodium 128, potassium 7.1, bicarbonate 11, anion gap 29, creatinine 1.71, blood sugars 787, urine positive for glucose and ketones, serum ketones positive. EKG shows normal sinus rhythm. Patient given calcium chloride in the ED, IV bicarbonate, as well as started on insulin drip. ICU consulted. Patient being admitted for diabetic ketoacidosis. Now out of ICU. off of insulin gtt. Now able to have some oral intake with difficulty, likely has diabetic gastroparesis. Unable to take Reglan due to past ALLERGY with facial swelling. Started on erythromycin. 02/16 Patient was seen and examined. Able to have a large bowel movement today. She reports improved nausea, able to tolerate pured diet. We will advance her diet. POC glucose 76-168 over the past 24H. Plans to continue Novolog 13 units TID with sliding scale and Levemir 38 units QHS. Advised to follow up with PCP within 1-[address] Henson within 1 week of discharge. Plans for outpatient followup with Dr. Loera within 1 week of abdominal mass thought to be lipoma. Pertient studies include Abd US. Vitals Signs: BP 135/75. HR 80. T 97.7F. RR 19. 99% on RA. General: nontoxic, no distress, appears at stated age, morbidly obese Derm: warm, dry, has intertrigo, one of the right folds have a ulceration with slight purulent discharge, 2 more areas of crusted and indurated lesions on the abdomen, right abdominal mass Head: atraumatic, normocephalic, symmetric ENT: Nose and ears atraumatic Neck: No thyromegaly, supple Cardiovascular: S1S2 reg, no murmur, no edema Lungs: clear to auscultation bilateral, no rhonchi, no rales, no wheeze, no accessory muscle use Abdominal: soft, nontender to palpation, no guarding, no appreciable organomegaly Ext: no gross muscle atrophy, muscle strength muscle strength 5 out of 5 in all 4 extremities, no contractures Neuro: legally blind Psych: Alert, oriented, appropriate affect Discharge Diagnosis: Diabetic ketoacidosis, resolved Poorly controlled type II diabetes, A1c 16.9 Anion gap metabolic acidosis, resolved Hyperkalemia, resolved Acute kidney injury, resolved Acute metabolic encephalopathy, resolved Intertrigo Right abdomen mass Constipation, resolved This complex discharge took 35 minutes to complete. Patient Condition at Discharge: Stable Plan - Discharge Summary New Discharge Prescriptions: New Erythromycin [Juan Antonio-Tab] 250 mg PO TID-W/MEALS tab Insulin Detemir (Levemir) [Levemir] 38 unit SQ HS each Pantoprazole [Protonix] 40 mg PO DAILY #30 tab polyethylene glycoL 3350 [Miralax] 17 gm PO DAILY packet INSULIN ASPART (NovoLOG) [NovoLOG (formulary)] 0 unit SQ [id number] each INSULIN ASPART (NovoLOG) [NovoLOG (formulary)] 13 unit SQ AC-TID each Continue lisinopriL [Zestril] 30 mg PO DAILY Verapamil Sr [Isoptin Sr] 180 mg PO DAILY Pioglitazone [Actos] 15 mg PO DAILY Ferrous Sulfate [Feosol] 325 mg PO DAILY SUMAtriptan succinate [Imitrex] 100 mg PO BID PRN PRN Reason: Migraine Headache Atorvastatin [Lipitor] 40 mg PO HS Aspirin EC [Ecotrin Low Dose] 81 mg PO DAILY sitaGLIPtin [Januvia] 50 mg PO DAILY Semaglutide [Ozempic] 0.25 mg SQ Q7D Ondansetron [Zofran] 4 mg PO Q8HR PRN PRN Reason: Nausea And Vomiting Metoprolol Succinate (ER) [Toprol XL] 50 mg PO BID Discharge Medication List Aspirin EC [Ecotrin Low Dose] 81 mg PO DAILY 02/09/23 [History] Atorvastatin [Lipitor] 40 mg PO HS 02/09/23 [History] Ferrous Sulfate [Feosol] 325 mg PO DAILY 02/09/23 [History] Metoprolol Succinate (ER) [Toprol XL] 50 mg PO BID 02/09/23 [History] Ondansetron [Zofran] 4 mg PO Q8HR PRN 02/09/23 [History] Pioglitazone [Actos] 15 mg PO DAILY 02/09/23 [History] SUMAtriptan succinate [Imitrex] 100 mg PO BID PRN 02/09/23 [History] Semaglutide [Ozempic] 0.25 mg SQ Q7D 02/09/23 [History] Verapamil Sr [Isoptin Sr] 180 mg PO DAILY 02/09/23 [History] lisinopriL [Zestril] 30 mg PO DAILY 02/09/23 [History] sitaGLIPtin [Januvia] 50 mg PO DAILY 02/09/23 [History] Erythromycin [Juan Antonio-Tab] 250 mg PO TID-W/MEALS tab 02/16/23 [Rx] INSULIN ASPART (NovoLOG) [NovoLOG (formulary)] 0 unit SQ [id number] each 02/16/23 [Rx] INSULIN ASPART (NovoLOG) [NovoLOG (formulary)] 13 unit SQ AC-TID each 02/16/23 [Rx] Insulin Detemir (Levemir) [Levemir] 38 unit SQ HS each 02/16/23 [Rx] Pantoprazole [Protonix] 40 mg PO DAILY #30 tab 02/16/23 [Rx] polyethylene glycoL 3350 [Miralax] 17 gm PO DAILY packet 02/16/23 [Rx] Follow up Appointment(s)/Referral(s): Marino Henson MD [REFERRING] - 1 Week Yifan Colbert MD [REFERRING] - 1-2 Days John Loera MD [STAFF PHYSICIAN] - 1 Week Activity/Diet/Wound Care/Special Instructions: Diet: Diabetic Follow up with your PCP within 1-2 days of discharge. Follow up with Endocrinology within 1 week of discharge. Take all medications as advised. Accuchecks ACHS. Discharge Disposition: TRANSFER TO SNF/ECF
[2023-02-16] MEDS: HYDROcodone/APAP 5-325MG 1 EACH TAB PO PRN (13:29)
== END 2023-02-16 15:35 | DRG 637 ==
LOC: EC 09:45 → 2SICU 14:26 → 4SSUR 02-11 14:50
PROVIDERS: ADMIT Student in an Organized Health Care Education/Training Program; ATTEND Student in an Organized Health Care Education/Training Program
DX: E11.10 Type 2 diabetes mellitus with ketoacidosis without coma (principal); G93.41 Metabolic encephalopathy; N17.9 Acute kidney failure, unspecified; Z68.42 Body mass index [BMI] 45.0-49.9, adult; E11.43 Type 2 diabetes mellitus with diabetic autonomic (poly)neuropathy; E66.01 Morbid (severe) obesity due to excess calories; E78.5 Hyperlipidemia, unspecified; E86.0 Dehydration; E87.5 Hyperkalemia; H54.8 Legal blindness, as defined in USA; I10 Essential (primary) hypertension; K31.84 Gastroparesis; K59.00 Constipation, unspecified; L30.4 Erythema intertrigo; Z79.4 Long term (current) use of insulin; Z79.82 Long term (current) use of aspirin; Z79.84 Long term (current) use of oral hypoglycemic drugs; Z79.899 Other long term (current) drug therapy; Z88.8 Allergy status to other drugs, medicaments and biological substances
CPT/HCPCS: 36415; 76705; 80048; 80051; 81003; 82009; 82565; 82803; 82947; 83036; 83735; 84100; 84520; 85025; 87040; 93005; 96361; 96374; 96375; 99291

== ENCOUNTER 2023-02-16 17:58 | Emergency (ER) | payer MEDICARE, OTHER ==
[2023-02-16 18:25] VITALS: TEMP 96.9
[2023-02-16] MEDS ORDERED: SODIUM CHLORIDE 0.9% 500 ML 500 ML IV ONE (18:52)
[2023-02-16 19:21] LABS: Anisocytosis Slight; Basophils % (A) 0 %; Eosinophils # (A) 0.2 k/uL (0-0.7); Eosinophils % (A) 3 %; HCT 36.6 % (34.0-46.0); HGB 12.1 gm/dL (11.4-16.0); Lymphocytes # (A) 1.3 k/uL (1.0-4.8); Lymphocytes % (A) 22 %; MCH 28.2 pg (25.0-35.0); MCHC 32.9 g/dL (31.0-37.0); Microcytosis Slight; Monocytes # (A) 0.7 k/uL (0-1.0); Monocytes % (A) 12 %; Neutrophils # (A) 3.4 k/uL (1.3-7.7); Neutrophils % (A) 61 %; Platelet Count 265 k/uL (150-450); RBC 4.28 m/uL (3.80-5.40); WBC 5.6 k/uL (3.8-10.6)
--- NOTE | 2023-02-16 19:26 | ED ---
General Adult HPI - General Chief complaint: Arrhythmia/Palpitations Stated complaint: A fib Time Seen by Provider: 02/16/23 18:20 Source: patient, EMS, RN notes reviewed, old records reviewed Mode of arrival: EMS Limitations: physical limitation - History of Present Illness Initial comments: This is a 57-year-old female who was recently admitted for DKA to the hospital and was discharged today 4:00. Patient arrived to the assisted her blood pressure systolically was in the 90s so they sent her back to be evaluated. Patient has no complaint patient denies lightheadedness or dizziness. Patient denies chest pain palpitations difficulty breathing or shortness of breath per patient denies any abdominal pain. Patient's only complaint is a chronic sacral pain that she has from a previous coccyx fracture. She states the pain there since November - Related Data Home Medications Medication Instructions Recorded Confirmed Aspirin EC [Ecotrin Low Dose] 81 mg PO DAILY 02/09/23 02/16/23 Atorvastatin [Lipitor] 40 mg PO HS 02/09/23 02/16/23 Ferrous Sulfate [Feosol] 325 mg PO DAILY 02/09/23 02/16/23 Metoprolol Succinate (ER) [Toprol 50 mg PO BID 02/09/23 02/16/23 XL] Ondansetron [Zofran] 4 mg PO Q8HR PRN 02/09/23 02/16/23 Pioglitazone [Actos] 15 mg PO DAILY 02/09/23 02/16/23 SUMAtriptan succinate [Imitrex] 100 mg PO BID PRN 02/09/23 02/16/23 Semaglutide [Ozempic] 0.25 mg SQ Q7D 02/09/23 02/16/23 Verapamil Sr [Isoptin Sr] 180 mg PO DAILY 02/09/23 02/16/23 lisinopriL [Zestril] 30 mg PO DAILY 02/09/23 02/16/23 sitaGLIPtin [Januvia] 50 mg PO DAILY 02/09/23 02/16/23 INSULIN ASPART (NovoLOG) [NovoLOG See Protocol SQ [id number] 02/16/23 02/16/23 (formulary)] Previous Rx's Medication Instructions Recorded Erythromycin [Juan Antonio-Tab] 250 mg PO TID-W/MEALS tab 02/16/23 INSULIN ASPART (NovoLOG) [NovoLOG 13 unit SQ AC-TID each 02/16/23 (formulary)] Insulin Detemir (Levemir) [Levemir] 38 unit SQ HS each 02/16/23 Pantoprazole [Protonix] 40 mg PO DAILY #30 tab 02/16/23 polyethylene glycoL 3350 [Miralax] 17 gm PO DAILY packet 02/16/23 Allergies Allergy/AdvReac Type Severity Reaction Status Date / Time metoclopramide [From Reglan] Allergy Swelling Verified 02/16/23 20:20 Review of Systems ROS Statement: Those systems with pertinent positive or pertinent negative responses have been documented in the HPI. ROS Other: All systems not noted in ROS Statement are negative. Past Medical History Past Medical History: Diabetes Mellitus Additional Past Medical History / Comment(s): legally blind, History of Any Multi-Drug Resistant Organisms: None Reported Past Surgical History: No Surgical Hx Reported Past Psychological History: No Psychological Hx Reported Smoking Status: Never smoker Past Alcohol Use History: None Reported Past Drug Use History: None Reported General Exam - General Exam Comments Initial Comments: GENERAL: Patient is well-developed and well-nourished. Patient is nontoxic and well- hydrated and is in no acute distress. ENT: Neck is soft and supple. No significant lymphadenopathy is noted. Oropharynx is clear. Moist mucous membranes. Neck has full range of motion without eliciting any pain. EYES: The sclera were anicteric and conjunctiva were pink and moist. Extraocular movements were intact and pupils were equal round and reactive to light. Eyelids were unremarkable. PULMONARY: Unlabored respirations. Good breath sounds bilaterally. No audible rales rhonchi or wheezing was noted. CARDIOVASCULAR: There is a regular rate and rhythm without any murmurs gallops or rubs. ABDOMEN: Soft and nontender with normal bowel sounds. No palpable organomegaly was noted. There is no palpable pulsatile mass. SKIN: Skin is clear with no lesions or rashes and otherwise unremarkable. NEUROLOGIC: Patient is alert and oriented x3. Cranial nerves II through XII are grossly intact. MUSCULOSKELETAL: Normal extremities with adequate strength and full range of motion. LYMPHATICS: No significant lymphadenopathy is noted PSYCHIATRIC: Normal psychiatric evaluation. Limitations: physical limitation Course Vital Signs 02/16/23 02/16/23 02/16/23 18:17 18:45 19:00 Temperature 96.9 F L Pulse Rate 98 85 92 Respiratory 18 14 14 Rate Blood Pressure 97/60 108/44 69/32 O2 Sat by Pulse 98 98 97 Oximetry 02/16/23 02/16/23 19:15 19:43 Temperature Pulse Rate 95 90 Respiratory 16 19 Rate Blood Pressure 92/60 96/49 O2 Sat by Pulse 96 100 Oximetry Medical Decision Making - Medical Decision Making EKG shows sinus rhythm with occasional PVC at 87 bpm MS interval 252 QRS is 90 QT interval 370 QTC is 4:15. Patient's EKG shows no ST segment elevation or depression Was pt. sent in by a medical professional or institution (, ILEANA, ATTENDANCE CLERK, urgent care, hospital, or assisted...) When possible be specific @ -Patient was sent in from the assisted Did you speak to anyone other than the patient for history (EMS, parent, family, police, friend...)? What history was obtained from this source @ -No Did you review nursing and triage notes (agree or disagree)? Why? @ -I reviewed and agree with nursing and triage notes Were old charts reviewed (outside hosp., previous admission, EMS record, old EKG, old radiological studies, urgent care reports/EKG's, assisted records)? Report findings @ -I reviewed prior charts lab work and radiological studies Differential Diagnosis (chest pain, altered mental status, abdominal pain women, abdominal pain men, vaginal bleeding, weakness, fever, dyspnea, syncope, headache, dizziness, GI bleed, back pain, seizure, CVA, palpatations, mental health, musculoskeletal)? @ -Orthostatic hypotension, sepsis, dehydration, baseline low blood pressures this is not all inclusive list EKG interpreted by me (3pts min.). @ -As above X-rays interpreted by me (1pt min.). @ -None done CT interpreted by me (1pt min.). @ -None done U/S interpreted by me (1pt. min.). @ -None done What testing was considered but not performed or refused? (CT, X-rays, U/S, labs)? Why? @ -None What meds were considered but not given or refused? Why? @ -None Did you discuss the management of the patient with other professionals (professionals i.e. , ILEANA, ATTENDANCE CLERK, lab, RT, psych nurse, healthcare social worker, transition social worker, teacher, [place] police officer, correctional case manager)? Give summary @ -No Was smoking cessation discussed for >3mins.? @ -No Was critical care preformed (if so, how long)? @ -No Were there social determinants of health that impacted care today? How? (Homelessness, low income, unemployed, alcoholism, drug addiction, transportation, low edu. Level, literacy, decrease access to med. care, intermediate, rehab)? @ -No Was there de-escalation of care discussed even if they declined (Discuss DNR or withdrawal of care, Hospice)? DNR status @ -No What co-morbidities impacted this encounter? (DM, HTN, Smoking, COPD, CAD, Cancer, CVA, ARF, Chemo, Hep., AIDS, mental health diagnosis, sleep apnea, morbid obesity)? @ -None Was patient admitted / discharged? Hospital course, mention meds given and route, prescriptions, significant lab abnormalities, going to OR and other pertinent info. @ -Shouldn't remained asymptomatic throughout the ED course. Patient blood pressures aside from 1 reading was in the high 90s to low 100s which was consistent with the blood pressures the patient had while in the hospital for a week and then discharge the assisted this afternoon. Patient again remains asymptomatic she will be discharged to the assisted. Patient did receive a liter of fluid while in the emergency department Undiagnosed new problem with uncertain prognosis? @ -No Drug Therapy requiring intensive monitoring for toxicity (Heparin, Nitro, Insulin, Cardizem)? @ -No Were any procedures done? @ -No Diagnosis/symptom? @ -Transient hypotension Acute, or Chronic, or Acute on Chronic? @ -Acute Uncomplicated (without systemic symptoms) or Complicated (systemic symptoms)? @ -Complicated Side effects of treatment? @ -No Exacerbation, Progression, or Severe Exacerbation? @ -No Poses a threat to life or bodily function? How? (Chest pain, [place], [place], pneumonia, PE, COPD, DKA, ARF, appy, cholecystitis, CVA, Diverticulitis, Homicidal, Suicidal, threat to staff... and all critical care pts) @ -No - Lab Data Result diagrams: 02/16/23 19:10 02/16/23 19:10 Lab Results 02/16/23 02/16/23 Range/Units 19:10 19:10 WBC 5.6 (3.8-10.6) k/uL RBC 4.28 (3.80-5.40) m/uL Hgb 12.1 (11.4-16.0) gm/dL Hct 36.6 (34.0-46.0) % MCV 85.5 D (80.0-100.0) fL MCH 28.2 (25.0-35.0) pg MCHC 32.9 (31.0-37.0) g/dL RDW 18.0 H (11.5-15.5) % Plt Count 265 (150-450) k/uL MPV 10.0 Neutrophils % 61 % Lymphocytes % 22 % Monocytes % 12 % Eosinophils % 3 % Basophils % 0 % Neutrophils # 3.4 (1.3-7.7) k/uL Lymphocytes # 1.3 (1.0-4.8) k/uL Monocytes # 0.7 (0-1.0) k/uL Eosinophils # 0.2 (0-0.7) k/uL Basophils # 0.0 (0-0.2) k/uL Anisocytosis Slight Microcytosis Slight Sodium 130 L (137-145) mmol/L Potassium 4.3 (3.5-5.1) mmol/L Chloride 98 (98-107) mmol/L Carbon Dioxide 25 (22-30) mmol/L Anion Gap 7 mmol/L BUN 16 (7-17) mg/dL Creatinine 1.09 H (0.52-1.04) mg/dL Est GFR (CKD-EPI)AfAm 66 (>60 ml/min/1.73 sqM) Est GFR (CKD-EPI)NonAf 58 (>60 ml/min/1.73 sqM) Glucose 83 (74-99) mg/dL Calcium 8.4 (8.4-10.2) mg/dL Total Bilirubin 0.6 (0.2-1.3) mg/dL AST 25 (14-36) U/L ALT 14 (4-34) U/L Alkaline Phosphatase 97 (38-126) U/L Total Protein 5.1 L (6.3-8.2) g/dL Albumin 2.6 L (3.5-5.0) g/dL Disposition Clinical Impression: Transient hypotension Disposition: HOME SELF-CARE Condition: Good Instructions (If sedation given, give patient instructions): Hypotension (ED) Is patient prescribed a controlled substance at d/c from ED?: No Referrals: Yifan Colbert MD [Primary Care Provider] - 1-2 days Time of Disposition: 20:47
[2023-02-16 19:29] LABS: MCV 85.5 fL (80.0-100.0)
[2023-02-16 19:30] LABS: ALT 14 U/L (4-34); AST 25 U/L (14-36); African American GFR (CKD) 66 (>60 ml/min/1.73 sqM); Albumin 2.6 g/dL (3.5-5.0); Alkaline Phosphatase 97 U/L (38-126); Anion Gap 7 mmol/L; Blood Urea Nitrogen 16 mg/dL (7-17); Calcium 8.4 mg/dL (8.4-10.2); Carbon Dioxide 25 mmol/L (22-30); Chloride 98 mmol/L (98-107); Glucose 83 mg/dL (74-99); Non-African American GFR(CKD) 58 (>60 ml/min/1.73 sqM); Potassium 4.3 mmol/L (3.5-5.1); Sodium 130 mmol/L (137-145); Total Bilirubin 0.6 mg/dL (0.2-1.3); Total Protein 5.1 g/dL (6.3-8.2)
[2023-02-16 21:38] VITALS: RESP 19
[2023-02-16 22:14] VITALS: BP 105/55; PULSE 88
== END 2023-02-16 22:22 | disposition home or self-care (01) ==
LOC: EC 17:58
DX: I95.89 Other hypotension (principal); E11.9 Type 2 diabetes mellitus without complications; Z79.4 Long term (current) use of insulin; Z79.84 Long term (current) use of oral hypoglycemic drugs; Z79.82 Long term (current) use of aspirin; Z79.899 Other long term (current) drug therapy; Z88.8 Allergy status to other drugs, medicaments and biological substances
CPT/HCPCS: 36415; 80053; 85025; 93005; 96360; 96361; 99285

== ENCOUNTER 2024-04-21 10:47 | Inpatient (IN) | payer MEDICARE, OTHER ==
--- NOTE | 2024-04-21 11:48 | ED ---
Abdominal Pain HPI - General Chief Complaint: Abdominal Pain Stated Complaint: Abd pain Time Seen by Provider: 04/21/24 11:47 Source: patient, RN notes reviewed Mode of arrival: EMS Limitations: no limitations - History of Present Illness Initial Comments: 58-year-old female presented to the ER with a chief complaint of abdominal pain. Patient states since yesterday she has been endorsing right-sided sharp abdominal pain. She states she has felt mildly nauseous but denies vomiting. Denies any diarrhea or constipation. Denies any fevers or chills. Patient does report she has a wound on her abdomen and has weekly wound care visits with skin graft placements. Denies any urinary complaints. Has not taken anything for pain at this time. - Related Data Home Medications Medication Instructions Recorded Confirmed Aspirin EC [Ecotrin Low Dose] 81 mg PO DAILY 02/09/23 04/21/24 Atorvastatin [Lipitor] 40 mg PO HS 02/09/23 04/21/24 Ferrous Sulfate [Feosol] 325 mg PO DAILY 02/09/23 04/21/24 SUMAtriptan succinate [Imitrex] 100 mg PO BID PRN 02/09/23 04/21/24 Acetaminophen-Codeine 300-30mg 1 tab PO DAILY PRN 04/21/24 04/21/24 [Tylenol w/codeine #3] Cefdinir [Omnicef] 300 mg PO BID 04/21/24 04/21/24 Cetirizine HCl [Zyrtec] 10 mg PO DAILY 04/21/24 04/21/24 Dulaglutide [Trulicity] 1.5 mg SQ FR 04/21/24 04/21/24 Ergocalciferol (Vitamin D2) 1,250 mcg PO Q7D 04/21/24 04/21/24 [Drisdol (50,000 Iu)] Insulin Aspart [NovoLOG Flexpen] 13 units SQ AC-TID 04/21/24 04/21/24 Insulin Glargine-Yfgn [Semglee 40 unit SQ HS 04/21/24 04/21/24 (Yfgn) Pen] Levothyroxine Sodium [Synthroid] 50 mcg PO DAILY 04/21/24 04/21/24 Magnesium Oxide [Magox 400] 400 mg PO DAILY 04/21/24 04/21/24 Metoprolol Succinate (ER) [Toprol 25 mg PO DAILY 04/21/24 04/21/24 Xl] Omeprazole [PriLOSEC] 20 mg PO DAILY 04/21/24 04/21/24 Verapamil HCl [Verapamil ER] 180 mg PO DAILY 04/21/24 04/21/24 allopurinoL [Zyloprim] 100 mg PO DAILY 04/21/24 04/21/24 Allergies Allergy/AdvReac Type Severity Reaction Status Date / Time ciprofloxacin [From Cipro] Allergy Rash/Hives Verified 04/21/24 15:02 metoclopramide [From Reglan] Allergy Swelling Verified 04/21/24 15:02 Review of Systems ROS Statement: Those systems with pertinent positive or pertinent negative responses have been documented in the HPI. ROS Other: All systems not noted in ROS Statement are negative. Past Medical History Past Medical History: Diabetes Mellitus, Hyperlipidemia, Hypertension Additional Past Medical History / Comment(s): legally blind, History of Any Multi-Drug Resistant Organisms: None Reported Past Surgical History: No Surgical Hx Reported Past Psychological History: No Psychological Hx Reported Smoking Status: Never smoker Past Alcohol Use History: None Reported Past Drug Use History: None Reported General Exam Limitations: no limitations General appearance: alert, in no apparent distress Respiratory exam: Present: normal lung sounds bilaterally. Absent: respiratory distress, wheezes, rales, rhonchi, stridor Cardiovascular Exam: Present: regular rate, normal rhythm, normal heart sounds. Absent: systolic murmur, diastolic murmur, rubs, gallop, clicks GI/Abdominal exam: Present: soft, tenderness (Right lower quadrant), normal bowel sounds Neurological exam: Present: alert, oriented X3, CN II-XII intact Skin exam: Present: warm, dry, intact, normal color. Absent: rash Course Vital Signs 04/21/24 04/21/24 10:52 14:28 Temperature 99.1 F Pulse Rate 99 91 Respiratory 20 18 Rate Blood Pressure 137/80 132/78 O2 Sat by Pulse 99 98 Oximetry - Reevaluation(s) Reevaluation #1: 04/21/24 15:[address] Nicholas for admission. Medical Decision Making - Medical Decision Making Was pt. sent in by a medical professional or institution (, PA, CRAFT MANAGER, urgent care, hospital, or [facility]...) When possible be specific @ -No Did you speak to anyone other than the patient for history (EMS, parent, family, police, friend...)? What history was obtained from this source @ -No Did you review nursing and triage notes (agree or disagree)? Why? @ -I reviewed and agree with nursing and triage notes Were old charts reviewed (outside hosp., previous admission, EMS record, old EKG, old radiological studies, urgent care reports/EKG's, [facility] records)? Report findings @ -No old charts were reviewed Differential Diagnosis (chest pain, altered mental status, abdominal pain women, abdominal pain men, vaginal bleeding, weakness, fever, dyspnea, syncope, headache, dizziness, GI bleed, back pain, seizure, CVA, palpatations, mental health, musculoskeletal)? @ -Differential Abdominal Pain Women: Appendicitis, Cholecystitis, diverticulosis, ischemic bowel, pancreatitis, hepatitis, UTI, gastroenteritis, AAA, incarcerated hernia, bowel obstruction, constipation, inflammatory bowel, hepatitis, peptic ulcer disease, splenic infarction, perforated viscus, vulvitis, ovarian torsion, PID, kidney stone, placenta abruption, this is not meant to be an all-inclusive list EKG interpreted by me (3pts min.). @ -None done X-rays interpreted by me (1pt min.). @ -None done CT interpreted by me (1pt min.). @ -CT abdomen pelvis showing left perinephric and ureteral fat stranding without hydroureteronephrosis. No obstructing calculus. Nonobstructive left 3 mm calculus. Exophytic left renal 3.3 fat-containing lesion most consistent with an angiomyolipoma. Moderate sized periumbilical hernia. Partial visualization of the right anterior abdominal soft tissue fat stranding and skin thickening. Scattered colonic diverticulosis no acute diverticulitis. U/S interpreted by me (1pt. min.). @ -None done What testing was considered but not performed or refused? (CT, X-rays, U/S, labs)? Why? @ -None What meds were considered but not given or refused? Why? @ -None Did you discuss the management of the patient with other professionals (professionals i.e. , PA, CRAFT MANAGER, lab, RT, psych nurse, group social worker, seismic engineer, teacher, surveillance dual rate officer, block and case maker)? Give summary @ -Case discussed with for admission. Was smoking cessation discussed for >3mins.? @ -No Was critical care preformed (if so, how long)? @ -No Were there social determinants of health that impacted care today? How? (Homelessness, low income, unemployed, alcoholism, drug addiction, transportation, low edu. Level, literacy, decrease access to med. care, care home, rehab)? @ -No Was there de-escalation of care discussed even if they declined (Discuss DNR or withdrawal of care, Hospice)? DNR status @ -No What co-morbidities impacted this encounter? (DM, HTN, Smoking, COPD, CAD, Cancer, CVA, ARF, Chemo, Hep., AIDS, mental health diagnosis, sleep apnea, morbid obesity)? @ -Legally blind, diabetes, hypertension, hyperlipidemia Was patient admitted / discharged? Hospital course, mention meds given and route, prescriptions, significant lab abnormalities, going to OR and other pertinent info. @ -Admitted. 58-year-old female presenting to the ER with a chief complaint of abdominal pain x 1 day. History and physical exam completed. Vitals upon arrival remarkable for temperature 99.1, heart rate 99 respiratory rate 20, blood pressure 137/80, oxygen saturation 99% on room air. Patient in no signs of acute distress. Right lower quadrant abdominal pain. No rebound or guarding. Bandage in place over umbilicus. Patient states this is from recent reversal of ostomy. She is seeing wound care. Laboratory studies and CT will be obtained, patient is agreeable. Laboratory studies show no leukocytosis of 12.8 with a left shift. GFR 35 with a BUN of 24 creatinine 1.63. GFR 58 on 815 23. Lactic 2.2. Urinalysis showing signs of infection with greater than 182 WBCs and many bacteria. Urine sent for culture. Acetone negative. CT abdomen pelvis showing findings of left perinephric and ureteral fat stranding concerning of pyelonephritis. Patient received IV Toradol for pain control in the ER. Admission considered and discussed with Dr. Nicholas for further treatment of pyleonephritis and sepsis. Patient met sepsis criteria at 1459. Antibiotics ordered at 1524. Blood cultures obtained. Patient started on 2g IV Rocephin. Patient given 2 L IV bolus and started on maintenance fluid at 130cc per hour. Upon reevaluation, patient resting comfortably in wheelchair no signs of acute distress. Patient reporting back pain IV Dilaudid ordered at that time. Patient is agreeable for admission. Patient admitted in stable condition. Case discussed with the head, . Undiagnosed new problem with uncertain prognosis? @ -No Drug Therapy requiring intensive monitoring for toxicity (Heparin, Nitro, Insulin, Cardizem)? @ -No Were any procedures done? @ -No Diagnosis/symptom? @ -Pyelonephritis/sepsis Acute, or Chronic, or Acute on Chronic? @ -Acute Uncomplicated (without systemic symptoms) or Complicated (systemic symptoms)? @ -Complicated Side effects of treatment? @ -No Exacerbation, Progression, or Severe Exacerbation? @ -No Poses a threat to life or bodily function? How? (Chest pain, [place], [place], pneumonia, PE, COPD, DKA, ARF, appy, cholecystitis, CVA, Diverticulitis, Homicidal, Suicidal, threat to staff... and all critical care pts) @ -Yes, sepsis can lead to endorgan dysfunction. - Lab Data Result diagrams: 04/21/24 12:24 04/21/24 12:24 Lab Results 04/21/24 04/21/24 04/21/24 Range/Units 12:24 12:24 12:24 WBC 12.8 H (3.8-10.6) k/uL RBC 4.46 (3.80-5.40) m/uL Hgb 13.0 (11.4-16.0) gm/dL Hct 41.2 (34.0-46.0) % MCV 92.3 (80.0-100.0) fL MCH 29.0 (25.0-35.0) pg MCHC 31.5 (31.0-37.0) g/dL RDW 14.8 (11.5-15.5) % Plt Count 352 (150-450) k/uL MPV 7.6 Neutrophils % 85 % Lymphocytes % 8 % Monocytes % 4 % Eosinophils % 1 % Basophils % 0 % Neutrophils # 10.9 H (1.3-7.7) k/uL Lymphocytes # 1.0 (1.0-4.8) k/uL Monocytes # 0.5 (0-1.0) k/uL Eosinophils # 0.1 (0-0.7) k/uL Basophils # 0.0 (0-0.2) k/uL Hypochromasia Slight Sodium 135 L (137-145) mmol/L Potassium 5.1 (3.5-5.1) mmol/L Chloride 103 (98-107) mmol/L Carbon Dioxide 23 (22-30) mmol/L Anion Gap 9 mmol/L BUN 24 H (7-17) mg/dL Creatinine 1.63 H (0.52-1.04) mg/dL Est GFR (CKD-EPI)AfAm 40 (>60 ml/min/1.73 sqM) Est GFR (CKD-EPI)NonAf 35 (>60 ml/min/1.73 sqM) Glucose 221 H (74-99) mg/dL Lactic Ac Sepsis Rflx Plasma Lactic Acid Connor 2.2 H* (0.7-2.0) mmol/L Calcium 9.4 (8.4-10.2) mg/dL Total Bilirubin 1.2 (0.2-1.3) mg/dL AST 42 H (14-36) U/L ALT 40 H (4-34) U/L Alkaline Phosphatase 287 H (38-126) U/L Total Protein 7.1 (6.3-8.2) g/dL Albumin 4.0 (3.5-5.0) g/dL Amylase 39 (30-110) U/L Lipase 140 (23-300) U/L Urine Color Urine Appearance (Clear) Urine pH (5.0-8.0) Ur Specific [place] (1.001-1.035) Urine Protein (Negative) Urine Glucose (UA) (Negative) Urine Ketones (Negative) Urine Blood (Negative) Urine Nitrite (Negative) Urine Bilirubin (Negative) Urine Urobilinogen (<2.0) mg/dL Ur Leukocyte Esterase (Negative) Urine RBC (0-5) /hpf Urine WBC (0-5) /hpf Urine WBC Clumps (None) /hpf Ur Squamous Epith Cells (0-4) /hpf Urine Bacteria (None) /hpf Urine Mucus (None) /hpf Acetone, Qual Negative (Negative) 04/21/24 04/21/24 04/21/24 Range/Units 12:52 14:48 14:57 WBC (3.8-10.6) k/uL RBC (3.80-5.40) m/uL Hgb (11.4-16.0) gm/dL Hct (34.0-46.0) % MCV (80.0-100.0) fL MCH (25.0-35.0) pg MCHC (31.0-37.0) g/dL RDW (11.5-15.5) % Plt Count (150-450) k/uL MPV Neutrophils % % Lymphocytes % % Monocytes % % Eosinophils % % Basophils % % Neutrophils # (1.3-7.7) k/uL Lymphocytes # (1.0-4.8) k/uL Monocytes # (0-1.0) k/uL Eosinophils # (0-0.7) k/uL Basophils # (0-0.2) k/uL Hypochromasia Sodium (137-145) mmol/L Potassium (3.5-5.1) mmol/L Chloride (98-107) mmol/L Carbon Dioxide (22-30) mmol/L Anion Gap mmol/L BUN (7-17) mg/dL Creatinine (0.52-1.04) mg/dL Est GFR (CKD-EPI)AfAm (>60 ml/min/1.73 sqM) Est GFR (CKD-EPI)NonAf (>60 ml/min/1.73 sqM) Glucose (74-99) mg/dL Lactic Ac Sepsis Rflx Y Plasma Lactic Acid Connor 2.9 H* (0.7-2.0) mmol/L Calcium (8.4-10.2) mg/dL Total Bilirubin (0.2-1.3) mg/dL AST (14-36) U/L ALT (4-34) U/L Alkaline Phosphatase (38-126) U/L Total Protein (6.3-8.2) g/dL Albumin (3.5-5.0) g/dL Amylase (30-110) U/L Lipase (23-300) U/L Urine Color Yellow Urine Appearance Turbid H (Clear) Urine pH 5.5 (5.0-8.0) Ur Specific [place] 1.018 (1.001-1.035) Urine Protein 1+ H (Negative) Urine Glucose (UA) Negative (Negative) Urine Ketones Negative (Negative) Urine Blood Small H (Negative) Urine Nitrite Negative (Negative) Urine Bilirubin Negative (Negative) Urine Urobilinogen <2.0 (<2.0) mg/dL Ur Leukocyte Esterase Large H (Negative) Urine RBC 10 H (0-5) /hpf Urine WBC >182 H (0-5) /hpf Urine WBC Clumps Many H (None) /hpf Ur Squamous Epith Cells 7 H (0-4) /hpf Urine Bacteria Many H (None) /hpf Urine Mucus Rare H (None) /hpf Acetone, Qual (Negative) - Radiology Data Radiology results: report reviewed, image reviewed Disposition Clinical Impression: Pyelonephritis, Sepsis Disposition: ADMITTED IP TO THIS HOSP Condition: Stable Referrals: Yifan Colbert MD [Primary Care Provider] - 1-2 days Time of Disposition: 16:15
[2024-04-21] MEDS: KETOROLAC 15 MG/ML 1 ML VIAL IVP STA (11:56)
[2024-04-21] MEDS: SODIUM CHLORIDE 0.9% 1,000 ML IV STA ×2 (11:57→16:13)
[2024-04-21 12:34] LABS: Basophils % (A) 0 %; Eosinophils # (A) 0.1 k/uL (0-0.7); Eosinophils % (A) 1 %; HCT 41.2 % (34.0-46.0); Hypochromasia Slight; Lymphocytes % (A) 8 %; MCHC 31.5 g/dL (31.0-37.0); MCV 92.3 fL (80.0-100.0); Mean Platelet Volume 7.6; Monocytes # (A) 0.5 k/uL (0-1.0); Monocytes % (A) 4 %; Neutrophils # (A) 10.9 k/uL (1.3-7.7); Neutrophils % (A) 85 %; Platelet Count 352 k/uL (150-450); RBC 4.46 m/uL (3.80-5.40); RDW 14.8 % (11.5-15.5); WBC 12.8 k/uL (3.8-10.6)
[2024-04-21 12:54] LABS: ALT 40 U/L (4-34); AST 42 U/L (14-36); African American GFR (CKD) 40 (>60 ml/min/1.73 sqM); Alkaline Phosphatase 287 U/L (38-126); Amylase 39 U/L (30-110); Anion Gap 9 mmol/L; Blood Urea Nitrogen 24 mg/dL (7-17); Calcium 9.4 mg/dL (8.4-10.2); Carbon Dioxide 23 mmol/L (22-30); Chloride 103 mmol/L (98-107); Glucose 221 mg/dL (74-99); Lipase 140 U/L (23-300); Non-African American GFR(CKD) 35 (>60 ml/min/1.73 sqM); Potassium 5.1 mmol/L (3.5-5.1); Sodium 135 mmol/L (137-145); Total Bilirubin 1.2 mg/dL (0.2-1.3); Total Protein 7.1 g/dL (6.3-8.2)
--- NOTE | 2024-04-21 13:54 | CT ---
EXAMINATION TYPE: CT abdomen pelvis wo con CT DLP: 3600.2 mGycm, Automated exposure control for dose reduction was used. DATE OF EXAM: 04/21/2024 1:38 PM COMPARISON: Abdominal ultrasound 02/10/2023 CLINICAL INDICATION:Female, 58 years old with history of right sided abd pain; Right sided abdominal pain TECHNIQUE: Standard CT of the abdomen and pelvis without IV or oral contrast. Lack of IV or oral co ntrast limits evaluation of solid and hollow organ viscera. Coronal and sagittal reformats were perfo rmed. FINDINGS: Limited examination due to patient's body habitus with portions of the right lateral abdome n are not included in the [id number]. LOWER CHEST: Linear atelectasis within the lingula. Coronary artery calcifications. Mildly prominent heart. ABDOMEN LIVER: Unremarkable noncontrast appearance GALLBLADDER AND BILE DUCTS: Unremarkable noncontrast appearance PANCREAS: Unremarkable noncontrast appearance SPLEEN: Unremarkable noncontrast appearance ADRENAL GLANDS: Unremarkable noncontrast appearance. KIDNEYS AND URETERS: No right hydronephrosis or renal calculi. Nonobstructive 3 mm left renal calculu s. Left perinephric and perirenal fat stranding no hydroureter. No obstructing calculus identified. E xophytic posterior lateral mid left kidney fat-containing mass measuring up to 3.4 cm. PELVIS BLADDER: Incompletely distended but grossly unremarkable. REPRODUCTIVE: Dystrophic calcification within the uterine fundus of the anteverted uterus. Favored sm all calcified fibroid. ABDOMEN & PELVIS STOMACH AND BOWEL: Stomach and duodenum are unremarkable. Few scattered colonic diverticulosis distal ly without evidence for acute diverticulitis. No evidence of bowel obstruction. The appendix is not i dentified however there is no significant inflammatory changes within the right lower quadrant. Scatt ered regions of hyperdense material within the small bowel and colon. PERITONEUM: No evidence of pneumoperitoneum or free fluid. VASCULATURE: Mild atherosclerotic calcifications are present throughout the abdominal aorta and its b ranches. No evidence of aortic aneurysm. MUSCULOSKELETAL: Multilevel degenerative disc disease. Prominent Schmorl's node involving the superio r endplate of the L2 vertebral body. Degenerative changes of the SI joints with anterior bridging of the left. LYMPH NODES: No evidence for lymphadenopathy. SOFT TISSUE/ABDOMINAL WALL: Proximal visualization of right anterior abdominal wall superficial skin thickening with some fat stranding (series 301, image 82). Periumbilical fat-containing hernia with d efect measuring 4.6 x 2.4 cm. IMPRESSION: 1. Left perinephric and ureteral fat stranding without hydroureteronephrosis. No obstructing calculu s. Findings may relate to recently passed calculus versus pyelonephritis. Nonobstructive left 3 mm ca lculus. 2. Exophytic left renal 3.4 cm fat-containing lesion most consistent with an angiomyolipoma. 3. Moderate sized periumbilical fat-containing hernia. 4. Partial visualization of right anterior abdominal soft tissue fat stranding and skin thickening johnson spicious for cellulitis. 5. Scattered colonic diverticulosis without evidence for acute diverticulitis. [facility], , 04/21/2024 1:52 PM
[2024-04-21 15:11] LABS: Appearance,Urine Turbid (Clear); Bacteria,Urine Many /hpf; Bilirubin,Urine Negative (Negative); Blood,Urine Small (Negative); Color,Urine Yellow; Glucose,Urine (UA) Negative (Negative); Ketones,Urine Negative (Negative); Leukocyte Esterase,Urine Large (Negative); Mucus,Urine Rare /hpf; Nitrite,Urine Negative (Negative); PH, Urine 5.5 (5.0-8.0); Protein,Urine 1+ (Negative); RBC,Urine 10 /hpf (0-5); Specific Gravity,Urine 1.018 (1.001-1.035); Squamous Epithelial Cell,Urine 7 /hpf (0-4); Urobilinogen,Urine <2.0 mg/dL (<2.0); WBC,Urine >182 /hpf (0-5)
[2024-04-21] MEDS ORDERED: ONDANSETRON 4 MG/2 ML VIAL IVP PRN (15:39)
[2024-04-21] MEDS ORDERED: ACETAMINOPHEN TAB 325 MG TAB PO PRN (15:39)
[2024-04-21] MEDS ORDERED: NALOXONE 0.4 MG/ML 1 ML VIAL IV PRN (15:39)
[2024-04-21] MEDS: cefTRIAXone IN SWFI 1,000 MG/10 ML SYRINGE IVP STA ×2 (16:13)
[2024-04-21] MEDS: HYDROmorphone 1 MG/ML 1 ML SYRINGE IVP STA (16:13)
--- NOTE | 2024-04-21 17:58 | P.HPIM ---
History of Present Illness H&P Date: 04/21/24 Chief Complaint: Abdominal pain This is a pleasant 58-year-old patient who follows with visiting physician Dr. Colbert. Chronic stable medical condition include diabetes, hypertension, hyperlipidemia legally blind. Patient lives with her friend Dontae. Yesterday afternoon patient started having right lower abdominal pain. Some vomiting. No fever no chills. Had 2-3 bowel movements associated with that. Normally has a bowel movement every other day. Decided to come in. The morning what she had had breakfast at [employer]. CT scan in the ER did not show some left perinephric and ureteral fat stranding without hydroureteronephrosis. Moderate sized periumbilical fat-containing hernia. Some scattered colonic diverticulosis. Patient is accompanied by her friend Dontae. Patient is feeling better this evening. Received IV ceftriaxone in the ER. Review of systems: GEN.: Tired EYES: Legally blind e HEENT: None NECK: None RESPIRATORY: None CARDIOVASCULAR: None GASTROINTESTINAL: As above e GENITOURINARY: None MUSCULOSKELETAL: Joint pains LYMPHATICS: None HEMATOLOGICAL: None PSYCHIATRY: None NEUROLOGICAL: Able to get around on her own] Social history: No smoking no alcohol. Lives with a friendDontae Physical examination: VITAL SIGNS: 98.4, 98, 18, 127 x 79, 97% room air GENERAL: BMI 53.2, reclining bed awake not in distress. EYES: Pupils equal. Conjunctiva laura l. HEENT: External appearance of nose and ears normal, oral cavity grossly normal. NECK: JVD unable to assess; masses not palpable. HEART: Heart sounds distant; no edema. LUNGS: Respiratory rate normal, distant breath sounds. ABDOMEN: Soft, nontender, liver spleen not palpable, no masses palpable. Large abdominal wall apron PSYCH: Alert and oriented x3; mood and affect laura l. MUSCULOSKELETAL:No Clubbing/cyanosis;muscles-grossly intact. OA NEUROLOGICAL: Cranial nerves grossly intact; no facial asymmetry, power and sensation grossly intact. LYMPHATICS: No lymph nodes palpable in the axilla and neck INVESTIGATIONS, reviewed in the clinical context: White count 12.8 hemoglobin 13 platelets 352 sodium 135 potassium 5.1 BUN 24 creatinine 1.63 Lactic acid 2.2 repeat 2.9 AST 42 ALT 40 UA: Positive for leukoesterase WBC squamous epithelial cells several bacteria m any CT abdomen pelvis without contrast: Nonobstructive 3 mm left renal calculus. Left perinephric and perirenal fat stranding no hydroureter. Exophytic posterior lateral mid left kidney fat-containing mass measuring up to 3.4 cm. Few scattered colonic diverticulosis. Assessment plan: -Patient presents with abdominal pain of yesterday afternoon with some right lower quadrant pain. Had 2-3 bowel movements. With vomiting. Appears to be more acute gastroenteritis. Could be bacterial -Possible left pyelonephritis. I do not see any leukoesterase or nitrite in the urine. IV ceftriaxone -Legally blind -Essential hypertension Toprol-XL 25 mg verapamil ER 180 mg -Diabetes mellitus type 2, chronically insulin Trulicity. Insulin Lantus 40 units at night sliding scale insulin -Hyperlipidemia Lipitor -GERD Prilosec -Chronic gout Allopurinol -Morbid obesity BMI 53.2 Weight loss measures Serum acetone negative Care was discussed with patient on and friend at the bedside. Questions answered. Repeat labs in the morning. Past Medical History Past Medical History: Diabetes Mellitus, Hyperlipidemia, Hypertension Additional Past Medical History / Comment(s): legally blind, History of Any Multi-Drug Resistant Organisms: None Reported Past Surgical History: No Surgical Hx Reported Past Psychological History: No Psychological Hx Reported Smoking Status: Never smoker Past Alcohol Use History: None Reported Past Drug Use History: None Reported Medications and Allergies Home Medications Medication Instructions Recorded Confirmed Type Aspirin EC [Ecotrin Low Dose] 81 mg PO DAILY 02/09/23 04/21/24 History Atorvastatin [Lipitor] 40 mg PO HS 02/09/23 04/21/24 History Ferrous Sulfate [Feosol] 325 mg PO DAILY 02/09/23 04/21/24 History SUMAtriptan succinate [Imitrex] 100 mg PO BID PRN 02/09/23 04/21/24 History Acetaminophen-Codeine 300-30mg 1 tab PO DAILY PRN 04/21/24 04/21/24 History [Tylenol w/codeine #3] Cefdinir [Omnicef] 300 mg PO BID 04/21/24 04/21/24 History Cetirizine HCl [Zyrtec] 10 mg PO DAILY 04/21/24 04/21/24 History Dulaglutide [Trulicity] 1.5 mg SQ FR 04/21/24 04/21/24 History Ergocalciferol (Vitamin D2) 1,250 mcg PO Q7D 04/21/24 04/21/24 History [Drisdol (50,000 Iu)] Insulin Aspart [NovoLOG Flexpen] 13 units SQ AC-TID 04/21/24 04/21/24 History Insulin Glargine-Yfgn [Semglee 40 unit SQ HS 04/21/24 04/21/24 History (Yfgn) Pen] Levothyroxine Sodium [Synthroid] 50 mcg PO DAILY 04/21/24 04/21/24 History Magnesium Oxide [Magox 400] 400 mg PO DAILY 04/21/24 04/21/24 History Metoprolol Succinate (ER) [Toprol 25 mg PO DAILY 04/21/24 04/21/24 History Xl] Omeprazole [PriLOSEC] 20 mg PO DAILY 04/21/24 04/21/24 History Verapamil HCl [Verapamil ER] 180 mg PO DAILY 04/21/24 04/21/24 History allopurinoL [Zyloprim] 100 mg PO DAILY 04/21/24 04/21/24 History Allergies Allergy/AdvReac Type Severity Reaction Status Date / Time ciprofloxacin [From Cipro] Allergy Rash/Hives Verified 04/21/24 15:02 metoclopramide [From Reglan] Allergy Swelling Verified 04/21/24 15:02 Physical Exam Vitals: Vital Signs Temp Pulse Resp BP Pulse Ox 04/21/24 16:19 98.4 F 98 18 127/79 97 04/21/24 14:28 91 18 132/78 98 04/21/24 10:52 99.1 F 99 20 137/80 99 Intake and Output 04/21/24 04/21/24 04/21/24 06:59 14:59 22:59 Other: Weight 140.614 kg Results CBC & Chem 7: 04/21/24 12:24 04/21/24 12:24 Labs: Abnormal Lab Results - Last 24 Hours (Table) 04/21/24 04/21/24 04/21/24 Range/Units 12:24 12:24 12:24 WBC 12.8 H (3.8-10.6) k/uL Neutrophils # 10.9 H (1.3-7.7) k/uL Sodium 135 L (137-145) mmol/L BUN 24 H (7-17) mg/dL Creatinine 1.63 H (0.52-1.04) mg/dL Glucose 221 H (74-99) mg/dL Plasma Lactic Acid Connor 2.2 H* (0.7-2.0) mmol/L AST 42 H (14-36) U/L ALT 40 H (4-34) U/L Alkaline Phosphatase 287 H (38-126) U/L Urine Appearance (Clear) Urine Protein (Negative) Urine Blood (Negative) Ur Leukocyte Esterase (Negative) Urine RBC (0-5) /hpf Urine WBC (0-5) /hpf Urine WBC Clumps (None) /hpf Ur Squamous Epith Cells (0-4) /hpf Urine Bacteria (None) /hpf Urine Mucus (None) /hpf 04/21/24 04/21/24 Range/Units 14:48 14:57 WBC (3.8-10.6) k/uL Neutrophils # (1.3-7.7) k/uL Sodium (137-145) mmol/L BUN (7-17) mg/dL Creatinine (0.52-1.04) mg/dL Glucose (74-99) mg/dL Plasma Lactic Acid Connor 2.9 H* (0.7-2.0) mmol/L AST (14-36) U/L ALT (4-34) U/L Alkaline Phosphatase (38-126) U/L Urine Appearance Turbid H (Clear) Urine Protein 1+ H (Negative) Urine Blood Small H (Negative) Ur Leukocyte Esterase Large H (Negative) Urine RBC 10 H (0-5) /hpf Urine WBC >182 H (0-5) /hpf Urine WBC Clumps Many H (None) /hpf Ur Squamous Epith Cells 7 H (0-4) /hpf Urine Bacteria Many H (None) /hpf Urine Mucus Rare H (None) /hpf
[2024-04-21] MEDS: SODIUM CHLORIDE 0.9% 1,000 ML IV SCH (18:26)
[2024-04-21] MEDS: ENOXAPARIN 40 MG/0.4 ML SYRINGE SQ SCH (18:33)
[2024-04-21] MEDS: INSULIN ASPART (NovoLOG) 100 UNIT/ML VIAL SQ SCH (22:03)
[2024-04-21 22:04] LABS: Glucose,Whole Blood 169 mg/dL (70-110)
[2024-04-21] MEDS: ATORVASTATIN 40 MG TAB PO SCH (22:06)
[2024-04-21] MEDS: INSULIN DETEMIR (LEVEMIR) 100 UNIT/ML SYR SQ SCH (22:07)
[2024-04-22] MEDS: LEVOTHYROXINE 50 MCG TAB PO SCH (05:18)
[2024-04-22] MEDS: SUMAtriptan succinate 50 MG TAB PO PRN (05:19)
[2024-04-22 05:24] LABS: Glucose,Whole Blood 82 mg/dL (70-110)
[2024-04-22] MEDS: METOPROLOL SUCCINATE (ER) 25 MG TAB.ER.24H PO SCH (08:25)
[2024-04-22] MEDS: PANTOPRAZOLE 40 MG TABLET PO SCH (08:25)
[2024-04-22] MEDS: Acetaminophen-Codeine 300-30mg TAB PO PRN (08:25)
[2024-04-22] MEDS: FERROUS SULFATE 325 MG TAB PO SCH (08:26)
[2024-04-22] MEDS: MAGNESIUM OXIDE 400 MG TAB PO SCH (08:26)
[2024-04-22] MEDS: LORATADINE 10 MG TAB PO SCH (08:26)
[2024-04-22] MEDS: VERAPAMIL SR 180 MG TABLET.ER PO SCH (08:26)
[2024-04-22] MEDS: ASPIRIN 81 MG PO SCH (08:26)
[2024-04-22] MEDS: allopurinoL 100 MG TAB PO SCH (08:26)
[2024-04-22 11:06] LABS: ALT 30 U/L (4-34); AST 37 U/L (14-36); African American GFR (CKD) 32 (>60 ml/min/1.73 sqM); Albumin 3.2 g/dL (3.5-5.0); Albumin/Globulin Ratio 1.1; Alkaline Phosphatase 231 U/L (38-126); Anion Gap 6 mmol/L; Blood Urea Nitrogen 29 mg/dL (7-17); Calcium 8.7 mg/dL (8.4-10.2); Carbon Dioxide 23 mmol/L (22-30); Chloride 106 mmol/L (98-107); Glucose 108 mg/dL (74-99); Non-African American GFR(CKD) 27 (>60 ml/min/1.73 sqM); Potassium 4.5 mmol/L (3.5-5.1); Sodium 135 mmol/L (137-145); Total Bilirubin 1.1 mg/dL (0.2-1.3); Total Protein 6.2 g/dL (6.3-8.2)
[2024-04-22 12:22] LABS: Glucose,Whole Blood 121 mg/dL (70-110)
[2024-04-22 17:10] LABS: Glucose,Whole Blood 191 mg/dL (70-110)
[2024-04-22] MEDS ORDERED: DEXTROSE 50% SYRINGE 50 ML IVP PRN ×2 (17:34)
[2024-04-22] MEDS: INSULIN ASPART (NovoLOG) 100 UNIT/ML VIAL SQ SCH (17:59)
--- NOTE | 2024-04-22 19:05 | P.PN ---
Progress Note - Text Progress Note Date: 04/22/24 Chief Complaint: Abdominal pain This is a pleasant 58-year-old patient who follows with visiting physician Dr. Colbert. Chronic stable medical condition include diabetes, hypertension, hyperlipidemia legally blind. Patient lives with her friend Dontae. Yesterday afternoon patient started having right lower abdominal pain. Some vomiting. No fever no chills. Had 2-3 bowel movements associated with that. Normally has a bowel movement every other day. Decided to come in. The morning what she had had breakfast at [facility] [employer]. CT scan in the ER did not show some left perinephric and ureteral fat stranding without hydroureteronephrosis. Moderate sized periumbilical fat-containing hernia. Some scattered colonic diverticulosis. Patient is accompanied by her friend Dontae. Patient is feeling better this evening. Received IV ceftriaxone in the ER. April 22: Abdominal pain is better. Had a bowel movement. No fever no chills. Some worsening of creatinine. Will continue IV fluids. Repeat labs in the morning. Active Medications Acetaminophen (Acetaminophen Tab 325 Mg Tab) 650 mg PO Q6HR PRN PRN Reason: Mild Pain or Fever > 100.5 Acetaminophen/Codeine Phosphate (Acetaminophen-Codeine 300-30mg Tab) 1 each PO DAILY PRN PRN Reason: Pain Last Admin: 04/22/24 08:25 Dose: 1 each Allopurinol (Allopurinol 100 Mg Tab) 100 mg PO DAILY [facility] Last Admin: 04/22/24 08:26 Dose: 100 mg Aspirin (Aspirin 81 Mg) 81 mg PO DAILY [facility] Last Admin: 04/22/24 08:26 Dose: 81 mg Atorvastatin Calcium (Atorvastatin 40 Mg Tab) 40 mg PO HS [facility] Last Admin: 04/21/24 22:06 Dose: 40 mg Dextrose/Water (Dextrose 50% Syringe 50 Ml) 25 ml IVP PER PROTOCOL PRN; Protocol PRN Reason: Hypoglycemia Dextrose/Water (Dextrose 50% Syringe 50 Ml) 50 ml IVP PER PROTOCOL PRN; Protocol PRN Reason: Hypoglycemia Enoxaparin Sodium (Enoxaparin 40 Mg/0.4 Ml Syringe) 40 mg SQ DAILY [facility] Last Admin: 04/22/24 08:26 Dose: 40 mg Ferrous Sulfate (Ferrous Sulfate 325 Mg Tab) 325 mg PO DAILY [facility] Last Admin: 04/22/24 08:26 Dose: 325 mg Sodium Chloride (Saline 0.9%) 1,000 mls @ 130 mls/hr IV .[id number] [facility] Last Admin: 04/22/24 17:34 Dose: Not Given Insulin Aspart (Insulin Aspart (Novolog) 100 Unit/Ml Vial) 0 unit SQ ACHS [facility]; Protocol Last Admin: 04/22/24 17:59 Dose: 2 unit Insulin Detemir (Insulin Detemir (Levemir) 100 Unit/Ml Syr) 30 unit SQ HS [facility] Last Admin: 04/21/24 22:07 Dose: 30 unit Levothyroxine Sodium (Levothyroxine 50 Mcg Tab) 50 mcg PO DAILY@0630 [facility] Last Admin: 04/22/24 05:18 Dose: 50 mcg Loratadine (Loratadine 10 Mg Tab) 10 mg PO DAILY [facility] Last Admin: 04/22/24 08:26 Dose: 10 mg Magnesium Oxide (Magnesium Oxide 400 Mg Tab) 400 mg PO DAILY [facility] Last Admin: 04/22/24 08:26 Dose: 400 mg Metoprolol Succinate (Metoprolol Succinate (Er) 25 Mg Tab.Er.24h) 25 mg PO DAILY [facility] Last Admin: 04/22/24 08:25 Dose: 25 mg Naloxone HCl (Naloxone 0.4 Mg/Ml 1 Ml Vial) 0.2 mg IV Q2M PRN PRN Reason: Opioid Reversal Non-Formulary Medication (Dulaglutide [Trulicity]) 1.5 mg SQ FR [facility] Ondansetron HCl (Ondansetron 4 Mg/2 Ml Vial) 4 mg IVP Q8HR PRN PRN Reason: Nausea And Vomiting Pantoprazole Sodium (Pantoprazole 40 Mg Tablet) 40 mg PO DAILY [facility] Last Admin: 04/22/24 08:25 Dose: 40 mg Sumatriptan Succinate (Sumatriptan Succinate 50 Mg Tab) 100 mg PO BID PRN PRN Reason: Migraine Headache Last Admin: 04/22/24 05:19 Dose: 100 mg Verapamil HCl (Verapamil Sr 180 Mg Tablet.Er) 180 mg PO DAILY [facility] Last Admin: 04/22/24 08:26 Dose: 180 mg Social history: No smoking no alcohol. Lives with a friendDon Physical examination: VITAL SIGNS: 39.6, 98, 18, 127 x 59, 100% room air GENERAL: BMI 53.2, reclining bed awake not in distress. EYES: Pupils equal. Conjunctiva laura l. HEENT: External appearance of nose and ears normal, oral cavity grossly normal. NECK: JVD unable to assess; masses not palpable. HEART: Heart sounds distant; no edema. LUNGS: Respiratory rate normal, distant breath sounds. ABDOMEN: Soft, nontender, liver spleen not palpable, no masses palpable. Large abdominal wall apron PSYCH: Alert and oriented x3; mood and affect laura l. MUSCULOSKELETAL:No Clubbing/cyanosis;muscles-grossly intact. OA INVESTIGATIONS, reviewed in the clinical context: April 22: Sodium 135 potassium 4.5 BUN 29 creatinine 2.0 White count 12.8 hemoglobin 13 platelets 352 sodium 135 potassium 5.1 BUN 24 creatinine 1.63 Lactic acid 2.2 repeat 2.9 AST 42 ALT 40 UA: Positive for leukoesterase WBC squamous epithelial cells several bacteria many CT abdomen pelvis without contrast: Nonobstructive 3 mm left renal calculus. Left perinephric and perirenal fat stranding no hydroureter. Exophytic posterior lateral mid left kidney fat-containing mass measuring up to 3.4 cm. Few scattered colonic diverticulosis. Assessment plan: -Patient presents with abdominal pain of yesterday afternoon with some right lower quadrant pain. Had 2-3 bowel movements. With vomiting. Appears to be more acute gastroenteritis. Could be bacterial -Possible left pyelonephritis. I do not see any leukoesterase or nitrite in the urine. IV ceftriaxone -Acute on possible chronic kidney disease Creatinine was 1.09 in February 2023. On admission 1.63. Today 2. Renal ultrasound. UA has 1+ protein. -Legally blind -Essential hypertension Toprol-XL 25 mg verapamil ER 180 mg -Diabetes mellitus type 2, chronically insulin Trulicity. Insulin Lantus 40 units at night sliding scale insulin -Hyperlipidemia Lipitor -GERD Prilosec -Chronic gout Allopurinol -Morbid obesity BMI 53.2 Weight loss measures Some worsening creatinine. Renal ultrasound. IV fluids. Repeat labs. Past Medical History Past Medical History: Diabetes Mellitus, Hyperlipidemia, Hypertension Additional Past Medical History / Comment(s): legally blind, History of Any Multi-Drug Resistant Organisms: None Reported Past Surgical History: No Surgical Hx Reported Past Psychological History: No Psychological Hx Reported Smoking Status: Never smoker Past Alcohol Use History: None Reported Past Drug Use History: None Reported
[2024-04-22 19:46] LABS: Glucose,Whole Blood 183 mg/dL (70-110)
--- NOTE | 2024-04-22 20:04 | US ---
EXAMINATION TYPE: US kidneys/renal and bladder DATE OF EXAM: 04/22/2024 COMPARISON: 04/21/2024 CLINICAL INDICATION: Female, 58 years old with history of Evaluate for CKD; TECHNIQUE: Grayscale and color Doppler imaging of the bilateral kidneys and urinary bladder: FINDINGS: EXAM MEASUREMENTS: Right Kidney: 9.3 x 5.8 x 4.9 cm Left Kidney: 10.8 x 5.6 x 5.4 cm Technical limitations due to patient's body habitus (morbidly obese) and limited mobility Right Kidney: limited evaluation Left Kidney: limited evaluation, no evidence of hydronephrosis Bladder: not seen No hydronephrosis distally visualized. IMPRESSION: Suboptimal evaluation of the kidneys due to patient body habitus. No evidence for hydronephrosis. Cor relate clinically. [facility], , 04/22/2024 8:02 PM
[2024-04-23 04:45] LABS: African American GFR (CKD) 32 (>60 ml/min/1.73 sqM); Anion Gap 1 mmol/L; Blood Urea Nitrogen 28 mg/dL (7-17); Carbon Dioxide 25 mmol/L (22-30); Chloride 109 mmol/L (98-107); Glucose 130 mg/dL (74-99); Non-African American GFR(CKD) 28 (>60 ml/min/1.73 sqM); Potassium 4.2 mmol/L (3.5-5.1); Sodium 135 mmol/L (137-145)
[2024-04-23 05:38] LABS: Glucose,Whole Blood 92 mg/dL (70-110)
[2024-04-23 07:01] VITALS: PULSE 77
[2024-04-23] MEDS: ENOXAPARIN 30 MG/0.3 ML SYRINGE SQ SCH (09:07)
[2024-04-23 12:08] LABS: Glucose,Whole Blood 163 mg/dL (70-110)
[2024-04-23 14:22] VITALS: BP 104/50; RESP 17; TEMP 98.4
--- NOTE | 2024-04-23 21:30 | P.DS ---
Providers Date of admission: 04/21/24 15:30 Expected date of discharge: 04/23/24 Attending physician: Mariano Nicholas Primary care physician: Yifan Colbert [facility] Course: Chief Complaint: Abdominal pain This is a pleasant 58-year-old patient who follows with visiting physician Dr. Colbert. Chronic stable medical condition include diabetes, hypertension, hyperlipidemia legally blind. Patient lives with her friend Dontae. Yesterday afternoon patient started having right lower abdominal pain. Some vomiting. No fever no chills. Had 2-3 bowel movements associated with that. Normally has a bowel movement every other day. Decided to come in. The morning what she had had breakfast at [employer]. CT scan in the ER did not show some left perinephric and ureteral fat stranding without hydroureteronephrosis. Moderate sized periumbilical fat-containing hernia. Some scattered colonic diverticulosis. Patient is accompanied by her friend Dontae. Patient is feeling better this evening. Received IV ceftriaxone in the ER. April 22: Abdominal pain is better. Had a bowel movement. No fever no chills. Some worsening of creatinine. Will continue IV fluids. Repeat labs in the morning. April 23: No abdominal pain. Eating well. Keen to go home. She has CKD. Follow-up with nephrology. Follow-up with PCP discussed Discussion and discharge planning more than 35 minutes Social history: No smoking no alcohol. Lives with a friendDontae Physical examination: VITAL SIGNS: 98.4, 77, 17, 104 x 50, 97% room air GENERAL: BMI 53.2, reclining bed comfortable EYES: Pupils equal. Conjunctiva laura l. HEENT: External appearance of nose and ears normal, oral cavity grossly normal. NECK: JVD unable to assess; masses not palpable. HEART: Heart sounds distant; no edema. LUNGS: Respiratory rate normal, distant breath sounds. ABDOMEN: Soft, nontender, liver spleen not palpable, no masses palpable. Large abdominal wall apron PSYCH: Alert and oriented x3; mood and affect laura l. MUSCULOSKELETAL:No Clubbing/cyanosis;muscles-grossly intact. OA INVESTIGATIONS, reviewed in the clinical context: Renal ultrasound: Unable to visualize kidney well April 23: Sodium 135 potassium 4.2 BUN 28 creatinine 1.96 April 22: Sodium 135 potassium 4.5 BUN 29 creatinine 2.0 White count 12.8 hemoglobin 13 platelets 352 sodium 135 potassium 5.1 BUN 24 creatinine 1.63 Lactic acid 2.2 repeat 2.9 AST 42 ALT 40 UA: Positive for leukoesterase WBC squamous epithelial cells several bacteria many CT abdomen pelvis without contrast: Nonobstructive 3 mm left renal calculus. Left perinephric and perirenal fat stranding no hydroureter. Exophytic posterior lateral mid left kidney fat-containing mass measuring up to 3.4 cm. Few scattered colonic diverticulosis. Assessment plan: -Patient presents with abdominal pain of yesterday afternoon with some right lower quadrant pain. Had 2-3 bowel movements. With vomiting. Appears to be more acute gastroenteritis. Could be bacterial -Possible left pyelonephritis. I do not see any leukoesterase or nitrite in the urine. IV ceftriaxone -Acute on possible chronic kidney disease Creatinine was 1.09 in February 2023. On admission 1.63. Now 1.96 Follow-up with nephrology outpatient Renal ultrasound-poor visualization. UA has 1+ protein. -Legally blind -Essential hypertension Toprol-XL 25 mg verapamil ER 180 mg -Diabetes mellitus type 2, chronically insulin Trulicity. Insulin Lantus 30 units at night sliding scale insulin -Hyperlipidemia Lipitor -GERD Prilosec -Chronic gout Allopurinol -Morbid obesity BMI 53.2 Weight loss measures Disposition: Home Past Medical History Past Medical History: Diabetes Mellitus, Hyperlipidemia, Hypertension Additional Past Medical History / Comment(s): legally blind, History of Any Multi-Drug Resistant Organisms: None Reported Past Surgical History: No Surgical Hx Reported Past Psychological History: No Psychological Hx Reported Smoking Status: Never smoker Past Alcohol Use History: None Reported Past Drug Use History: None Reported Plan - Discharge Summary New Discharge Prescriptions: Continue Ferrous Sulfate [Feosol] 325 mg PO DAILY SUMAtriptan succinate [Imitrex] 100 mg PO BID PRN PRN Reason: Migraine Headache Verapamil HCl [Verapamil ER] 180 mg PO DAILY Acetaminophen-Codeine 300-30mg [Tylenol w/codeine #3] 1 tab PO DAILY PRN PRN Reason: Pain Levothyroxine Sodium [Synthroid] 50 mcg PO DAILY Magnesium Oxide [Magox 400] 400 mg PO DAILY Cetirizine HCl [Zyrtec] 10 mg PO DAILY Dulaglutide [Trulicity] 1.5 mg SQ FR Atorvastatin [Lipitor] 40 mg PO HS Aspirin EC [Ecotrin Low Dose] 81 mg PO DAILY allopurinoL [Zyloprim] 100 mg PO DAILY Ergocalciferol (Vitamin D2) [Drisdol (50,000 Iu)] 1,250 mcg PO Q7D Omeprazole [PriLOSEC] 20 mg PO DAILY Metoprolol Succinate (ER) [Toprol XL] 25 mg PO DAILY Cefdinir [Omnicef] 300 mg PO BID #10 cap Changed Insulin Aspart [NovoLOG Flexpen] 6 units SQ AC-TID #0 Insulin Glargine-Yfgn [Semglee (Yfgn) Pen] 30 unit SQ HS #0 Discharge Medication List Aspirin EC [Ecotrin Low Dose] 81 mg PO DAILY 02/09/23 [History] Atorvastatin [Lipitor] 40 mg PO HS 02/09/23 [History] Ferrous Sulfate [Feosol] 325 mg PO DAILY 02/09/23 [History] SUMAtriptan succinate [Imitrex] 100 mg PO BID PRN 02/09/23 [History] Acetaminophen-Codeine 300-30mg [Tylenol w/codeine #3] 1 tab PO DAILY PRN 04/21/24 [History] Cetirizine HCl [Zyrtec] 10 mg PO DAILY 04/21/24 [History] Dulaglutide [Trulicity] 1.5 mg SQ FR 04/21/24 [History] Ergocalciferol (Vitamin D2) [Drisdol (50,000 Iu)] 1,250 mcg PO Q7D 04/21/24 [History] Levothyroxine Sodium [Synthroid] 50 mcg PO DAILY 04/21/24 [History] Magnesium Oxide [Magox 400] 400 mg PO DAILY 04/21/24 [History] Metoprolol Succinate (ER) [Toprol XL] 25 mg PO DAILY 04/21/24 [History] Omeprazole [PriLOSEC] 20 mg PO DAILY 04/21/24 [History] Verapamil HCl [Verapamil ER] 180 mg PO DAILY 04/21/24 [History] allopurinoL [Zyloprim] 100 mg PO DAILY 04/21/24 [History] Cefdinir [Omnicef] 300 mg PO BID #10 cap 04/23/24 [Rx] Insulin Aspart [NovoLOG Flexpen] 6 units SQ AC-TID #0 04/23/24 [Rx] Insulin Glargine-Yfgn [Semglee (Yfgn) Pen] 30 unit SQ HS #0 04/23/24 [Rx] Follow up Appointment(s)/Referral(s): Alejandra Ayon MD [STAFF PHYSICIAN] - 2 Weeks Yifan Colbert MD [Primary Care Provider] - 1-2 days Discharge Disposition: HOME SELF-CARE
[2024-04-28] MEDS ORDERED: NON FORMULARY DRUG (Dulaglutide [Trulicity] 1.5 MG/0.5 ML Each) SQ SCH (09:00)
== END 2024-04-23 16:35 | disposition home or self-care (01) | DRG 392 ==
LOC: EC 10:47 → 5NMEDONC 15:30 → 6NMEDSUR 17:35
PROVIDERS: ADMIT Hospitalist; ATTEND Hospitalist
DX: K52.89 Other specified noninfective gastroenteritis and colitis (principal); N12 Tubulo-interstitial nephritis, not specified as acute or chronic; E78.5 Hyperlipidemia, unspecified; E11.22 Type 2 diabetes mellitus with diabetic chronic kidney disease; K42.9 Umbilical hernia without obstruction or gangrene; I12.9 Hypertensive chronic kidney disease with stage 1 through stage 4 chronic kidney disease, or unspecified chronic kidney disease; H54.8 Legal blindness, as defined in USA; N18.9 Chronic kidney disease, unspecified; K57.30 Diverticulosis of large intestine without perforation or abscess without bleeding; Z79.82 Long term (current) use of aspirin; Z79.890 Hormone replacement therapy; Z79.899 Other long term (current) drug therapy; Z79.4 Long term (current) use of insulin; Z79.85 Long-term (current) use of injectable non-insulin antidiabetic drugs
CPT/HCPCS: 36415; 74176; 76770; 80048; 80053; 81001; 82009; 82150; 83036; 83605; 83690; 85025; 87040; 87077; 87186; 96361; 96374; 96375; 96376; 99285